=== PATIENT | female | born 1980 | race African-American/Black ===

== ENCOUNTER 2019-03-13 18:17 | Emergency (ER) | payer OTHER, SELFPAY ==
--- NOTE | 2019-03-13 20:30 | ER ---
Nurse's Notes [facility] Name: Astrid Zamora Age: 38 yrs Sex: Female : 1980 Arrival Date: 03/13/2019 Time: 18:19 Bed 30 Private MD: Diagnosis: Dental caries;Dental caries, unspecified Presentation: 03/13 18:29 Presenting complaint: Patient states: left lower tooth pain/swelling x 2 weeks. Has sv seen her PCP was given Amoxicillin and finished that round and f/u with her PCP again and sent her with PCN and today woke up with increased left lower jaw/lip swelling. Transition of care: patient was not received from another setting of care. Onset of symptoms was March 13, 2019. Care prior to arrival: None. 18:29 Method Of Arrival: Ambulatory sv 18:29 Acuity: CR 3 sv 19:27 Risk Assessment: Do you want to hurt yourself or someone else? Patient reports no ea desire to harm self or others. Initial Sepsis Screen: Does the patient meet any 2 criteria? No. Patient's initial sepsis screen is negative. Does the patient have a suspected source of infection?. Historical: - Allergies: 18:31 No Known Allergies; sv - PMHx: 18:31 Hypertension; sv - PSHx: 18:31 Tubal ligation; Cholecystectomy; sv - Immunization history:: Adult Immunizations up to date. - Social history:: Smoking status: Patient/guardian denies using tobacco. - Ebola Screening: : No symptoms or risks identified at this time. - Family history:: not pertinent. Screenin:26 Abuse screen: Denies threats or abuse. Nutritional screening: No deficits noted. ea Tuberculosis screening: No symptoms or risk factors identified. Fall Risk None identified. Assessment: 19:24 General: Appears uncomfortable, Behavior is crying. Pain: Complains of pain in left ea yazdanism, left zygomatic area, left cheek and left mandible. Neuro: Level of Consciousness is awake, alert, obeys commands, Oriented to person, place, time, situation. Cardiovascular: Patient's skin is warm and dry. Respiratory: Airway is patent Respiratory effort is even, unlabored, Respiratory pattern is regular, symmetrical. EENT: Reports pain in left yazdanism, left zygomatic area, left cheek and left mandible. EENT: swelling noted to left side of face, pt reports tooth pain. Derm: Skin is pink, warm \T\ dry. 20:51 Reassessment: Patient and/or family updated on plan of care and expected duration. Pain ea level reassessed. Patient is alert, oriented x 3, equal unlabored respirations, skin warm/dry/pink. Discharge instruction given to patient, verbalized the understanding of instruction. Pt left ED ambulatory no s/s of pain or discomfort noted. Vital Signs: 18:31 BP 132 / 73; Pulse 79; Resp 18; Temp 99.2(O); Pulse Ox 97% ; Weight 113.85 kg; Height 5 sv ft. 4 in. (162.56 cm); Pain 10/10; 20:45 BP 128 / 65; Pulse 68; Resp 18; Temp 98.9; Pulse Ox 99% on R/A; Pain 7/10; ea 18:31 Body Mass Index 43.08 (113.85 kg, 162.56 cm) sv ED Course: 18:19 Patient arrived in ED. as 18:31 Triage completed. sv 18:31 Arm band placed on. sv 19:23 Jadon Mayo MD is Attending Physician. catrina 19:24 Peri Rai, CHOLO is Primary Nurse. ea 19:27 Patient has correct armband on for positive identification. Bed in low position. Call ea light in reach. Side rails up X2. 20:50 No provider procedures requiring assistance completed. Patient did not have IV access ea during this emergency room visit. Administered Medications: 20:35 Drug: Motrin 800 mg Route: PO; ea 20:50 Follow up: Response: No adverse reaction ea 20:35 Drug: Clindamycin 300 mg Route: PO; ea 20:50 Follow up: Response: No adverse reaction ea 20:50 CANCELLED (Other Intervention Used): Clindamycin 600 mg IM once ea Outcome: 20:29 Discharge ordered by . catrina 20:50 Discharged to home ambulatory. ea 20:50 Condition: stable 20:50 Discharge instructions given to patient, Instructed on discharge instructions, follow up and referral plans. medication usage, Demonstrated understanding of instructions, follow-up care, medications, Prescriptions given X 2. 20:53 Patient left the ED. ea Signatures: Wilma Brown RN RN Jadon Mayo MD MD cha Martinez, Amelia as Antunez, Elena, RN RN ea Corrections: (The following items were deleted from the chart) 18:32 18:31 BP 132 / 73; Pulse 79bpm; Resp 18bpm; Pulse Ox 97%; 113.85 kg; Height 5 ft. 4 sv in.; BMI: 43.0; Pain 10/10; sv
--- NOTE | 2019-03-13 20:30 | EDPHYS ---
Physician Documentation [facility] Name: Astrid Zamora Age: 38 yrs Sex: Female : 1980 Arrival Date: 03/13/2019 Time: 18:19 Bed 30 Private MD: ED Physician Jadon Mayo HPI: 03/13 20:24 This 38 yrs old Black Female presents to ER via Ambulatory with complaints of catrina Toothache, Jaw Pain. 20:24 The patient presents with pain, redness, swelling. The problem is located in the lower catrina left second molar, lower left first molar, lower left second bicuspid and left jaw. Onset: The symptoms/episode began/occurred 3 day(s) ago. Duration: The symptoms are continuous, and are steadily getting worse. Modifying factors: The symptoms are alleviated by nothing, the symptoms are aggravated by chewing, cold fluids. Associated signs and symptoms: The patient has no apparent associated signs or symptoms. Severity of symptoms: At their worst the symptoms were moderate, in the emergency department the symptoms are unchanged. The patient has experienced similar episodes in the past, a few times. Historical: - Allergies: 18:31 No Known Allergies; sv - PMHx: 18:31 Hypertension; sv - PSHx: 18:31 Tubal ligation; Cholecystectomy; sv - Immunization history:: Adult Immunizations up to date. - Social history:: Smoking status: Patient/guardian denies using tobacco. - Ebola Screening: : No symptoms or risks identified at this time. - Family history:: not pertinent. ROS: 20:24 Constitutional: Negative for fever, chills, and weight loss, Eyes: Negative for injury, catrina pain, redness, and discharge, Neck: Negative for injury, pain, and swelling, Cardiovascular: Negative for chest pain, palpitations, and edema, Respiratory: Negative for shortness of breath, cough, wheezing, and pleuritic chest pain, Abdomen/GI: Negative for abdominal pain, nausea, vomiting, diarrhea, and constipation, Back: Negative for injury and pain, : Negative for injury, bleeding, discharge, and swelling, MS/Extremity: Negative for injury and deformity, Skin: Negative for injury, rash, and discoloration, Neuro: Negative for headache, weakness, numbness, tingling, and seizure, Psych: Negative for depression, anxiety, suicide ideation, homicidal ideation, and hallucinations, Allergy/Immunology: Negative for hives, rash, and allergies, Endocrine: Negative for neck swelling, polydipsia, polyuria, polyphagia, and marked weight changes, Hematologic/Lymphatic: Negative for swollen nodes, abnormal bleeding, and unusual bruising. 20:24 ENT: Positive for dental pain. Exam: 20:24 Constitutional: This is a well developed, well nourished patient who is awake, alert, catrina and in no acute distress. Head/Face: Normocephalic, atraumatic. Eyes: Pupils equal round and reactive to light, extra-ocular motions intact. Lids and lashes normal. Conjunctiva and sclera are non-icteric and not injected. Cornea within normal limits. Periorbital areas with no swelling, redness, or edema. ENT: Nares patent. No nasal discharge, no septal abnormalities noted. Tympanic membranes are normal and external auditory canals are clear. Oropharynx with no redness, swelling, or masses, exudates, or evidence of obstruction, uvula midline. Mucous membranes moist. Neck: Trachea midline, no thyromegaly or masses palpated, and no cervical lymphadenopathy. Supple, full range of motion without nuchal rigidity, or vertebral point tenderness. No Meningismus. Chest/axilla: Normal chest wall appearance and motion. Nontender with no deformity. No lesions are appreciated. Cardiovascular: Regular rate and rhythm with a normal S1 and S2. No gallops, murmurs, or rubs. Normal PMI, no JVD. No pulse deficits. Respiratory: Lungs have equal breath sounds bilaterally, clear to auscultation and percussion. No rales, rhonchi or wheezes noted. No increased work of breathing, no retractions or nasal flaring. Abdomen/GI: Soft, non-tender, with normal bowel sounds. No distension or tympany. No guarding or rebound. No evidence of tenderness throughout. Back: No spinal tenderness. No costovertebral tenderness. Full range of motion. Skin: Warm, dry with normal turgor. Normal color with no rashes, no lesions, and no evidence of cellulitis. MS/ Extremity: Pulses equal, no cyanosis. Neurovascular intact. Full, normal range of motion. Neuro: Awake and alert, GCS 15, oriented to person, place, time, and situation. Cranial nerves II-XII grossly intact. Motor strength 5/5 in all extremities. Sensory grossly intact. Cerebellar exam normal. Normal gait. Psych: Awake, alert, with orientation to person, place and time. Behavior, mood, and affect are within normal limits. Vital Signs: 18:31 BP 132 / 73; Pulse 79; Resp 18; Temp 99.2(O); Pulse Ox 97% ; Weight 113.85 kg; Height 5 sv ft. 4 in. (162.56 cm); Pain 10/10; 20:45 BP 128 / 65; Pulse 68; Resp 18; Temp 98.9; Pulse Ox 99% on R/A; Pain 7/10; ea 18:31 Body Mass Index 43.08 (113.85 kg, 162.56 cm) sv MDM: 19:23 Patient medically screened. [facility] 20:27 Data reviewed: vital signs, nurses notes. [facility] Administered Medications: 20:35 Drug: Motrin 800 mg Route: PO; ea 20:50 Follow up: Response: No adverse reaction ea 20:35 Drug: Clindamycin 300 mg Route: PO; ea 20:50 Follow up: Response: No adverse reaction ea 20:50 CANCELLED (Other Intervention Used): Clindamycin 600 mg IM once ea Disposition: 03/13/19 20:29 Discharged to Home. Impression: Dental caries, Dental caries, unspecified. - Condition is Stable. - Discharge Instructions: Dental Caries, Adult, Dental Pain, Dental Pain, [id number], Dental Caries, [id number]. - Prescriptions for Clindamycin HCl 300 mg Oral Capsule - take 1 capsule by ORAL route every 6 hours for 10 days; 28 capsule. Tylenol- Codeine #3 300-30 mg Oral Tablet - take 2 tablet by ORAL route every 6 hours As needed; 30 tablet. - Medication Reconciliation Form, Thank You Letter, Antibiotic Education, Prescription Opioid Use form. - Follow up: Private Physician; When: 2 - 3 days; Reason: Recheck today's complaints, Re-evaluation by your physician. - Problem is new. - Symptoms have improved. Signatures: Wilma Brown RN RN sv Anderson, Corey, MD MD cha Antunez, Elena, RN RN ea Corrections: (The following items were deleted from the chart) 20:50 20:24 Clindamycin 600 mg IM once ordered. [facility] belen 20:53 20:29 03/13/2019 20:29 Discharged to Home. Impression: Dental caries; Dental caries, ea unspecified. Condition is Stable. Forms are Medication Reconciliation Form, Thank You Letter, Antibiotic Education, Prescription Opioid Use. Follow up: Private Physician; When: 2 - 3 days; Reason: Recheck today's complaints, Re-evaluation by your physician. Problem is new. Symptoms have improved. catrina
[2019-03-13] MEDS ORDERED: CLINDAMYCIN HCL 150 MG CAP ONE (20:44)
[2019-03-13] MEDS ORDERED: IBUPROFEN 400 MG TAB ONE (20:45)
[2019-03-13 21:36] VITALS: BP 128/65; TEMP 98.9; O2SAT 99
== END 2019-03-13 20:53 | disposition home or self-care (01) ==
LOC: ER 18:17
DX: K02.9 Dental caries, unspecified (principal); I10 Essential (primary) hypertension
CPT/HCPCS: 99283

== ENCOUNTER 2019-11-15 11:40 | Emergency (ER) | payer SELFPAY ==
--- OUTSIDE RECORDS SUMMARY | 2019-11-15 11:42 | XMS REPORT ---
:1980 Author Organization [facility] Address [address] [place] [address] [address] [place] [address] Care Team Providers Name Role Phone Unavailable Unavailable Unavailable Problems This patient has no known problems. Allergies, Adverse Reactions, Alerts This patient has no known allergies or adverse reactions. Medications This patient has no known medications.
[2019-11-15] MEDS ORDERED: ASPIRIN 81 MG CHEWABLE TABLET ONE ×2 (12:07→12:08)
[2019-11-15 12:17] LABS: Absolute Lymphocytes (CBC) 2.7 K/uL (0.7-4.9); Basophils % 0.9 % (0-1.3); Hematocrit 31.3 % (36.0-45.0); Lymphocytes % 39.2 % (15.3-44.8); MPV 7.7 fL (7.6-11.3); RBC Red Blood Cell Count 4.62 M/uL (3.86-4.86)
[2019-11-15 12:20] LABS: Protime INR 1.11
[2019-11-15 12:39] LABS: ALT/SGPT 33 U/L (12-78); AST/SGOT 32 U/L (15-37); Albumin 3.9 g/dL (3.4-5.0); Alkaline Phosphatase 76 U/L (45-117); BUN Blood Urea Nitrogen 10 mg/dL (7-18); Bicarbonate 29 mmol/L (21-32); Bilirubin Direct 0.1 mg/dL (0-0.2); Bilirubin Total 0.4 mg/dL (0.2-1.0); Glucose Level 113 mg/dL (74-106); Magnesium 2.1 mg/dL (1.8-2.4); Potassium 3.2 mmol/L (3.5-5.1); Protein, Total 9.3 g/dL (6.4-8.2); Sodium Level 138 mmol/L (136-145); Troponin (Emerg Dept Use Only) < 0.02 ng/mL (0.0-0.045)
[2019-11-15 12:41] LABS: NT PRO-BNP < 5 pg/mL (<125)
[2019-11-15 13:04] LABS: Blood Morphology Comment NOTED (NOT SEEN); Hypochromasia 1+; Platelet Estimate INCR; Urine White Blood Cell Casts OK
[2019-11-15] MEDS ORDERED: KETOROLAC 30 MG/ML INJ ONE (13:11)
[2019-11-15] MEDS ORDERED: POTASSIUM CL SA 10 MEQ TAB PO ONE (13:11)
--- NOTE | 2019-11-15 13:16 | RAD REPORT ---
EXAM DESCRIPTION: RAD - Chest Single View - 11/15/2019 1:05 pm CLINICAL HISTORY: CHEST PAIN Chest pain. COMPARISON: No comparisons FINDINGS: Portable technique limits examination quality. The lungs are grossly clear. The heart is normal in size. No displaced fractures. IMPRESSION: No acute intrathoracic process suspected.
--- NOTE | 2019-11-15 13:49 | ER ---
Nurse's Notes [facility] Name: Astrid Zamora Age: 39 yrs Sex: Female : 1980 Arrival Date: 11/15/2019 Time: 11:42 Bed 4 Private MD: Diagnosis: Chest pain, unspecified Presentation: 11/15 11:53 Presenting complaint: Patient states: Chest tightness started couple days ago, worse ca1 today. Reports N/V/Dizziness. No previous hx of chest pain, Hx of HPN reported. Transition of care: patient was not received from another setting of care. Onset of symptoms was November 15, 2019. Risk Assessment: Do you want to hurt yourself or someone else? Patient reports no desire to harm self or others. Initial Sepsis Screen: Does the patient meet any 2 criteria? No. Patient's initial sepsis screen is negative. Does the patient have a suspected source of infection? No. Patient's initial sepsis screen is negative. Care prior to arrival: None. 11:53 Method Of Arrival: Wheelchair ca1 11:53 Acuity: CR 3 ca1 DICE PERSON: 11:57 LMP 10/28/2019 ca1 Historical: - Allergies: 11:55 No Known Allergies; ca1 - Home Meds: 11:55 hydrochlorothiazide 25 mg Oral tab 1 tab once daily [Active]; ca1 - PMHx: 11:55 Hypertension; ca1 - PSHx: 11:55 Cholecystectomy; Tubal ligation; ca1 - Immunization history:: Adult Immunizations up to date, Pneumococcal vaccine is not up to date, Flu vaccine is not up to date. - Social history:: Smoking status: Patient/guardian denies using tobacco. - Ebola Screening: : Patient negative for fever greater than or equal to 101.5 degrees Fahrenheit, and additional compatible Ebola Virus Disease symptoms Patient denies exposure to infectious person Patient denies travel to an Ebola-affected area in the 21 days before illness onset No symptoms or risks identified at this time. Screenin:24 Abuse screen: Denies threats or abuse. Nutritional screening: No deficits noted. tw2 Tuberculosis screening: No symptoms or risk factors identified. Fall Risk None identified. Assessment: 11:53 Pain: Pain does not radiate. tw2 12:00 General: Appears in no apparent distress. comfortable, well groomed, Behavior is calm, ph cooperative, appropriate for age, Denies fever, feeling ill. Pain: Complains of pain in anterior aspect of right upper chest Pain does not radiate. Pain currently is 9 out of 10 on a pain scale. Quality of pain is described as throbbing. Neuro: Level of Consciousness is awake, alert, obeys commands, Oriented to person, place, time, situation, Reports dizziness. Cardiovascular: Reports chest pain, nausea, vomiting, Denies palpitations, shortness of breath. Cardiovascular: Chest pain is located in right anterior chest wall. Respiratory: Airway is patent Respiratory effort is even, unlabored. GI: Reports nausea, vomiting, Patient currently denies abdominal pain. Derm: Skin is intact, is healthy with good turgor, Skin is pink, warm \T\ dry. Musculoskeletal: Circulation, motion, and sensation intact. Range of motion: intact in all extremities. 12:25 Pain: Pain began 2-3 days ago. tw2 12:55 Reassessment: Patient appears in no apparent distress at this time. Patient and/or ph family updated on plan of care and expected duration. Pain level reassessed. Patient is alert, oriented x 3, equal unlabored respirations, skin warm/dry/pink. PT c/o pain 10/10 and requesting medication, ERP notified, see MAR. 13:30 Reassessment: Patient appears in no apparent distress at this time. Patient and/or ph family updated on plan of care and expected duration. Pain level reassessed. Patient is alert, oriented x 3, equal unlabored respirations, skin warm/dry/pink. Patient states symptoms have improved. Vital Signs: 11:55 BP 153 / 103; Pulse 110; Resp 16 S; Pulse Ox 100% on R/A; Weight 111.13 kg (R); Height ca1 5 ft. 4 in. (162.56 cm) (R); Pain 9/10; 12:24 BP 127 / 91; Pulse 77; Resp 18; Pulse Ox 100% on R/A; tw2 13:22 BP 101 / 76; Pulse 74; Resp 18; Pulse Ox 99% on R/A; ph 14:00 BP 118 / 90; Pulse 75; Resp 17; Temp 97.4; Pulse Ox 100% on R/A; ph 11:55 Body Mass Index 42.05 (111.13 kg, 162.56 cm) ca1 ED Course: 11:42 Patient arrived in ED. mr 11:46 Amaury Banda PA is PHCP. jr8 11:46 Jadon Mayo MD is Attending Physician. jr8 11:46 Bed in low position. Call light in reach. cuff slitter on. Pulse ox on. NIBP on. tw2 11:54 Triage completed. ca1 11:55 Arm band placed on right wrist. ca1 12:05 Denisse Perez, CHOLO is Primary Nurse. ph 12:16 Initial lab(s) drawn, by me, sent to lab. EKG done, by ED staff, reviewed by Amaury FREED. Inserted saline lock: 22 gauge in right antecubital area, using aseptic technique. Blood collected. 12:24 Patient maintains SpO2 saturation greater than 95% on room air. tw2 13:02 XRAY Chest (1 view) In Process Unspecified. EDAK 13:47 Silvano Rosales MD is Referral Physician. jr8 14:00 No provider procedures requiring assistance completed. IV discontinued, intact, tw2 bleeding controlled, No redness/swelling at site. Pressure dressing applied. Administered Medications: 12:15 Drug: Aspirin Chewable Tablet 324 mg Route: PO; ph 12:30 Follow up: Response: No adverse reaction ph 13:14 Follow up: Response: No adverse reaction tw2 13:15 Drug: Potassium Chloride 40 mEq Route: PO; ph 13:30 Follow up: Response: No adverse reaction ph 13:15 Drug: TORadol - Ketorolac 15 mg Route: IVP; Site: right antecubital; ph 13:45 Follow up: Response: No adverse reaction; Pain is decreased ph Outcome: 13:47 Discharge ordered by . jr8 14:00 Discharged to home ambulatory, with family. tw2 14:00 Condition: stable 14:00 Discharge instructions given to patient, family, Instructed on discharge instructions, follow up and referral plans. Demonstrated understanding of instructions, follow-up care. 14:01 Patient left the ED. tw2 Signatures: Dispatcher [employer] EDAK Kath Ricci mr NadyasanjayAmaury PA PA jr8 Denisse Perez, CHOLO RN ph Jacqueline Hanley RN RN tw2 Mehran Garcia Cheryl, RN RN ca1 Corrections: (The following items were deleted from the chart) 15:52 14:00 BP 118 / 90; Pulse 75bpm; Resp 17bpm; Pulse Ox 100% RA; tw2 ph
--- NOTE | 2019-11-15 13:50 | EDPHYS ---
Physician Documentation [facility] Name: Astrid Zamora Age: 39 yrs Sex: Female : 1980 Arrival Date: 11/15/2019 Time: 11:42 Bed 4 Private MD: ED Physician Jadon Mayo HPI: 11/15 13:09 This 39 yrs old Black Female presents to ER via Wheelchair with complaints of Chest jr8 Pain, Dizziness. 13:09 The patient or guardian reports chest pain that is located primarily in the substernal jr8 area. The pain does not radiate. Associated signs and symptoms: The patient has no apparent associated signs or symptoms. The chest pain is described as sharp. Duration: The patient or guardian reports multiple episodes, that are intermittent. Modifying factors: The symptoms are alleviated by nothing. the symptoms are aggravated by nothing. Severity of pain: At its worst the pain was moderate in the emergency department the pain is unchanged. The patient has not experienced similar symptoms in the past. The patient has not recently seen a physician. Stated that about 2 weeks ago had syncopal episode at work as well . 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 - Social history:: Smoking status: Patient/guardian denies using tobacco. - Ebola Screening: : Patient negative for fever greater than or equal to 101.5 degrees Fahrenheit, and additional compatible Ebola Virus Disease symptoms Patient denies exposure to infectious person Patient denies travel to an Ebola-affected area in the 21 days before illness onset No symptoms or risks identified at this time. ROS: 13:09 Eyes: Negative for injury, pain, redness, and discharge, ENT: Negative for injury, jr8 pain, and discharge, Neck: Negative for injury, pain, and swelling, Respiratory: Negative for shortness of breath, cough, wheezing, and pleuritic chest pain, Abdomen/GI: Negative for abdominal pain, nausea, vomiting, diarrhea, and constipation, Back: Negative for injury and pain, MS/Extremity: Negative for injury and deformity, Skin: Negative for injury, rash, and discoloration. 13:09 Cardiovascular: Positive for chest pain, Negative for edema, orthopnea, palpitations, paroxysmal nocturnal dyspnea. 13:09 Neuro: Positive for dizziness. Exam: 13:09 Eyes: Pupils equal round and reactive to light, extra-ocular motions intact. Lids and jr8 lashes normal. Conjunctiva and sclera are non-icteric and not injected. Cornea within normal limits. Periorbital areas with no swelling, redness, or edema. ENT: Nares patent. No nasal discharge, no septal abnormalities noted. Tympanic membranes are normal and external auditory canals are clear. Oropharynx with no redness, swelling, or masses, exudates, or evidence of obstruction, uvula midline. Mucous membranes moist. Neck: Trachea midline, no thyromegaly or masses palpated, and no cervical lymphadenopathy. Supple, full range of motion without nuchal rigidity, or vertebral point tenderness. No Meningismus. Chest/axilla: Normal chest wall appearance and motion. Nontender with no deformity. No lesions are appreciated. Cardiovascular: Regular rate and rhythm with a normal S1 and S2. No gallops, murmurs, or rubs. Normal PMI, no JVD. No pulse deficits. Respiratory: Lungs have equal breath sounds bilaterally, clear to auscultation and percussion. No rales, rhonchi or wheezes noted. No increased work of breathing, no retractions or nasal flaring. Abdomen/GI: Soft, non-tender, with normal bowel sounds. No distension or tympany. No guarding or rebound. No evidence of tenderness throughout. Back: No spinal tenderness. No costovertebral tenderness. Full range of motion. Skin: Warm, dry with normal turgor. Normal color with no rashes, no lesions, and no evidence of cellulitis. MS/ Extremity: Pulses equal, no cyanosis. Neurovascular intact. Full, normal range of motion. Neuro: Awake and alert, GCS 15, oriented to person, place, time, and situation. Cranial nerves II-XII grossly intact. Motor strength 5/5 in all extremities. Sensory grossly intact. Cerebellar exam normal. Normal gait. Vital Signs: 11:55 BP 153 / 103; Pulse 110; Resp 16 S; Pulse Ox 100% on R/A; Weight 111.13 kg (R); Height ca1 5 ft. 4 in. (162.56 cm) (R); Pain 9/10; 12:24 BP 127 / 91; Pulse 77; Resp 18; Pulse Ox 100% on R/A; tw2 13:22 BP 101 / 76; Pulse 74; Resp 18; Pulse Ox 99% on R/A; ph 14:00 BP 118 / 90; Pulse 75; Resp 17; Temp 97.4; Pulse Ox 100% on R/A; ph 11:55 Body Mass Index 42.05 (111.13 kg, 162.56 cm) ca1 MDM: 11:47 Patient medically screened. jr8 13:45 Differential diagnosis: abnormal EKG, acute myocardial infarction, acute pericarditis, jr8 anxiety, chest wall pain, cholecystitis, Cholelithiasis costochondritis, esophagitis, gastritis, gastroesophageal reflux disease (GERD), pleurisy, pneumonia, pulmonary embolus, stable angina, thoracic aortic disection, unstable angina. Data reviewed: vital signs, nurses notes, lab test result(s), EKG, radiologic studies, plain films. Data interpreted: Pulse oximetry: on room air is 99 %. Interpretation: normal. 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 ED course: Patient feeling better. Symptoms have been going on for past couple of days. No troponin elevation. Negative CXR and ECG for acute findings. Rest of labs stable. Recommended f/u with cardiology. Close return precautions given. Patient good with this plan . 11/15 11:55 Order name: Basic Metabolic Panel; Complete Time: 12:43 11/15 11:55 Order name: CBC with Diff; Complete Time: 13:05 11/15 11:55 Order name: LFT's; Complete Time: 12:43 11/15 11:55 Order name: Magnesium; Complete Time: 12:43 11/15 11:55 Order name: NT PRO-BNP; Complete Time: 12:43 11/15 11:55 Order name: PT-INR; Complete Time: 12:43 11/15 11:55 Order name: Troponin (emerg Dept Use Only); Complete Time: 12:43 11/15 11:55 Order name: XRAY Chest (1 view); Complete Time: 13:19 8 11/15 11:55 Order name: EKG; Complete Time: 11:56 jr11/15 11:55 Order name: Cardiac monitoring; Complete Time: 12:00 8 11/15 13:04 Order name: CBC Smear Scan; Complete Time: 13:05 EDMS 11/15 11:55 Order name: EKG - Nurse/Tech; Complete Time: 12:00 11/15 11:55 Order name: IV Saline Lock; Complete Time: 12:17 11/15 11:55 Order name: Labs collected and sent; Complete Time: 12:17 11/15 11:55 Order name: O2 Per Protocol; Complete Time: 12:11/15 11:55 Order name: O2 Sat Monitoring; Complete Time: 12: Administered Medications: 12:15 Drug: Aspirin Chewable Tablet 324 mg Route: PO; ph 12:30 Follow up: Response: No adverse reaction ph 13:14 Follow up: Response: No adverse reaction tw2 13:15 Drug: Potassium Chloride 40 mEq Route: PO; ph 13:30 Follow up: Response: No adverse reaction ph 13:15 Drug: TORadol - Ketorolac 15 mg Route: IVP; Site: right antecubital; ph 13:45 Follow up: Response: No adverse reaction; Pain is decreased ph Disposition: 11/16 07:26 Co-signature as Attending Physician, Jadon Mayo MD I agree with the assessment and catrina plan of care. Disposition: 11/15/19 13:47 Discharged to Home. Impression: Chest pain, unspecified. - Condition is Stable. - Discharge Instructions: Nonspecific Chest Pain, Chest Wall Pain, Chest Pain Observation. - Medication Reconciliation Form, Thank You Letter, Antibiotic Education, Prescription Opioid Use, Work release form form. - Follow up: Silvano Rosales MD; When: Tomorrow; Reason: Recheck today's complaints, Continuance of care, Re-evaluation by your physician. - Problem is new. - Symptoms have improved. Signatures: Dispatcher [employer] EDJadon Cervantes MD MD cha Roszak, Josh, PA PA jr8 Denisse Perez, RN RN ph Jacqueline Hanley RN RN tw2 Reba Bueno RN RN ca1 Corrections: (The following items were deleted from the chart) 11/15 14:01 13:47 11/15/2019 13:47 Discharged to Home. Impression: Chest pain, unspecified. tw2 Condition is Stable. Forms are Work release form, Medication Reconciliation Form, Thank You Letter, Antibiotic Education, Prescription Opioid Use. Follow up: Sivlano Rosales; When: Tomorrow; Reason: Recheck today's complaints, Continuance of care, Re-evaluation by your physician. Problem is new. Symptoms have improved. jr8
[2019-11-15 14:13] VITALS: BP 118/90; O2SAT 100
--- NOTE | 2019-11-16 05:32 | EKG ---
Test Date: 2019-11-15 Test Time: 11:59:59 Modeling Agency Manager: LAXMI MEASUREMENT RESULTS: Intervals: Rate: 89 DE: 150 QRSD: 90 QT: 370 QTc: 450 [place]: P: 47 DE: 150 QRS: 19 T: 19 INTERPRETIVE STATEMENTS: Normal sinus rhythm Nonspecific T wave abnormality Abnormal ECG Compared to ECG 09/01/2011 23:26:58 T-wave abnormality now present Electronically Signed On 11-16-19 05:30:38 TRANSCRIPTION MANAGER by Chemo Gilman
== END 2019-11-15 14:01 | disposition home or self-care (01) ==
LOC: ER 11:40
DX: R07.9 Chest pain, unspecified (principal); R42 Dizziness and giddiness; I10 Essential (primary) hypertension
CPT/HCPCS: 36415; 71045; 80048; 80076; 83735; 83880; 84484; 85025; 85610; 93005; 96374; 99285

== ENCOUNTER 2020-02-08 09:05 | Emergency (ER) | payer SELFPAY ==
--- OUTSIDE RECORDS SUMMARY | 2020-02-08 09:32 | XMS REPORT ---
:1980 [facility] [address] [place] [address] [address] [place] [address] Care Team Providers Name Role Phone Unavailable Unavailable Unavailable Problems This patient has no known problems. Allergies, Adverse Reactions, Alerts This patient has no known allergies or adverse reactions. Medications This patient has no known medications.
[2020-02-08 09:35] LABS: Absolute Lymphocytes (CBC) 3.9 K/uL (0.7-4.9); Hematocrit 30.5 % (36.0-45.0); MPV 7.6 fL (7.6-11.3); RBC Red Blood Cell Count 4.42 M/uL (3.86-4.86)
[2020-02-08 09:38] LABS: Protime INR 1.01
--- NOTE | 2020-02-08 09:55 | RAD REPORT ---
EXAM DESCRIPTION: RAD - Chest Single View - 02/08/2020 9:43 am CLINICAL HISTORY: Syncope, shortness of breath COMPARISON: November 2019 TECHNIQUE: AP portable chest image was obtained 02/08/2020 9:43 am . FINDINGS: Lungs are clear. Heart and vasculature are normal. No measurable pleural effusion and no p neumothorax. No acute bony abnormality seen. No acute aortic findings suspected. IMPRESSION: No acute cardiopulmonary process. No significant interval change.
--- NOTE | 2020-02-08 09:56 | RAD REPORT ---
EXAM DESCRIPTION: CT - Head Brain Wo Cont - 02/08/2020 9:51 am CLINICAL HISTORY: SYNCOPE, dizziness, loss of consciousness COMPARISON: No comparisons TECHNIQUE: Axial 5 mm thick images of the head were obtained without IV contrast. All CT scans are performed using dose optimization technique as appropriate and may include automated exposure control or mA/KV adjustment according to patient size. FINDINGS: No intracranial hemorrhage, mass, edema or shift of mid-line structures. No acute infarcti on changes seen. No abnormal extra-axial fluid collections. Ventricles are normal. Mastoid air cells and visualized portions of the paranasal sinuses are clear. No acute bony findings. IMPRESSION: Negative non-contrast CT head examination.
[2020-02-08 10:00] LABS: ALT/SGPT 18 U/L (12-78); AST/SGOT 22 U/L (15-37); Albumin 3.4 g/dL (3.4-5.0); Alkaline Phosphatase 64 U/L (45-117); BUN Blood Urea Nitrogen 15 mg/dL (7-18); Bicarbonate 26 mmol/L (21-32); Bilirubin Direct < 0.1 mg/dL (0-0.2); Bilirubin Total 0.2 mg/dL (0.2-1.0); Glucose Level 135 mg/dL (74-106); NT PRO-BNP 13 pg/mL (<125); Protein, Total 8.2 g/dL (6.4-8.2); Sodium Level 138 mmol/L (136-145); Troponin (Emerg Dept Use Only) < 0.02 ng/mL (0.0-0.045)
[2020-02-08 10:01] LABS: Potassium 2.9 mmol/L (3.5-5.1)
[2020-02-08 10:10] LABS: Anisocytosis 2+; Blood Morphology Comment NOTED (NOT SEEN); Hypochromasia 2+; Platelet Estimate ADEQ; Urine White Blood Cell Casts OK
[2020-02-08 10:11] LABS: Elliptocytes 1+
[2020-02-08] MEDS ORDERED: POTASSIUM 25 MEQ EFFERV TAB ONE (10:22)
[2020-02-08 10:28] LABS: Urine Blood NEGATIVE (NEG); Urine Glucose NEGATIVE (NEG); Urine Protein NEGATIVE (NEG); Urine Specific Gravity >1.030 (1.005-1.030)
--- NOTE | 2020-02-08 14:02 | EDPHYS ---
Physician Documentation [facility] Name: Astrid Zamora Age: 39 yrs Sex: Female : 1980 Arrival Date: 02/08/2020 Time: 09:10 Bed 17 Private MD: ELADIO Physician Jadon Mayo HPI: 02/07 09:26 This 39 yrs old Black Female presents to ER via EMS with complaints of Syncope. pm1 09:26 The patient has experienced syncope. Onset: The symptoms/episode began/occurred just pm1 prior to arrival. Duration: This was a single episode. Context: the episode(s) was witnessed, home health patient. Associated injury: The patient did not suffer any apparent associated injury. Associated signs and symptoms: Pertinent negatives: abdominal pain, chest pain, diarrhea, headache, nausea, numbness, shortness of breath, tingling, vomiting, weakness. Current symptoms: Currently, the patient is not experiencing any symptoms. The patient has experienced a previous episode, approximately 3 months ago. The patient has been recently seen by a physician: the patient's primary care provider, recently prescribed hydrochlorothiazide for HTN. 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 - Social history:: Smoking status: Patient denies any tobacco usage or history of. ROS: 09:32 Constitutional: Negative for fever, chills, and weight loss, Eyes: Negative for injury, pm1 pain, redness, and discharge, ENT: Negative for injury, pain, and discharge, Neck: Negative for injury, pain, and swelling, Cardiovascular: Negative for chest pain, palpitations, and edema, Respiratory: Negative for shortness of breath, cough, wheezing, and pleuritic chest pain, Abdomen/GI: Negative for abdominal pain, nausea, vomiting, diarrhea, and constipation, Back: Negative for injury and pain, MS/Extremity: Negative for injury and deformity, Skin: Negative for injury, rash, and discoloration. 09:32 Neuro: Positive for dizziness, syncope, Negative for headache, numbness, tingling, weakness. Exam: 09:32 Abdomen/GI: pm1 09:32 Constitutional: This is a well developed, well nourished patient who is awake, alert, and in no acute distress. Head/Face: Normocephalic, atraumatic. Chest/axilla: Normal chest wall appearance and motion. Nontender with no deformity. No lesions are appreciated. Cardiovascular: Regular rate and rhythm with a normal S1 and S2. No gallops, murmurs, or rubs. Normal PMI, no JVD. No pulse deficits. Respiratory: Lungs have equal breath sounds bilaterally, clear to auscultation and percussion. No rales, rhonchi or wheezes noted. No increased work of breathing, no retractions or nasal flaring. Abdomen/GI: Soft, non-tender, with normal bowel sounds. No distension or tympany. No guarding or rebound. No evidence of tenderness throughout. Back: No spinal tenderness. No costovertebral tenderness. Full range of motion. Skin: Warm, dry with normal turgor. Normal color with no rashes, no lesions, and no evidence of cellulitis. MS/ Extremity: Pulses equal, no cyanosis. Neurovascular intact. Full, normal range of motion. 09:32 Neuro: Exam negative for acute changes, Orientation: is normal, Mentation: is normal, Motor: is normal, moves all fours. Vital Signs: 09:10 BP 118 / 80; Pulse 77; Resp 18; Temp 98.1(O); Pulse Ox 100% on R/A; Weight 111.13 kg; em Height 5 ft. 4 in. (162.56 cm); Pain 0/10; 09:46 BP 122 / 71 LA Sitting (auto/lg); Pulse 81; Resp 18; Pulse Ox 100% ; ms 09:46 BP 116 / 77 LA Standing (auto/lg); Pulse 74; Resp 18; Pulse Ox 99% ; ms 09:46 BP 113 / 74 LA Supine (auto/lg); Pulse 72; Resp 18; Pulse Ox 100% ; ms 10:36 BP 112 / 71; Pulse 65; Resp 18; Pulse Ox 99% on R/A; em 11:45 BP 139 / 94; Pulse 72; Resp 18; Pulse Ox 99% on R/A; em 13:00 BP 116 / 74; Pulse 69; Resp 18; Pulse Ox 99% on R/A; em 09:10 Body Mass Index 42.05 (111.13 kg, 162.56 cm) em MDM: 09:11 Patient medically screened. pm1 11:25 Data reviewed: vital signs. Data interpreted: Pulse oximetry: on room air is 99 %. pm1 Interpretation: normal. 13:58 Counseling: I had a detailed discussion with the patient and/or guardian regarding: the pm1 historical points, exam findings, and any diagnostic results supporting the discharge/admit diagnosis, lab results, radiology results, the need for outpatient follow up, to return to the emergency department if symptoms worsen or persist or if there are any questions or concerns that arise at home. 02/07 09:20 Order name: Basic Metabolic Panel; Complete Time: 10:04 pm1 02/07 09:20 Order name: CBC with Diff; Complete Time: 10:18 pm1 02/07 09:20 Order name: LFT's; Complete Time: 10:04 pm1 02/07 09:20 Order name: Magnesium; Complete Time: 10:04 pm1 02/07 09:20 Order name: NT PRO-BNP; Complete Time: 10:04 pm1 02/07 09:20 Order name: PT-INR; Complete Time: 09:44 pm1 02/07 09:20 Order name: Troponin (emerg Dept Use Only); Complete Time: 10:04 pm1 02/07 09:20 Order name: XRAY Chest (1 view); Complete Time: 10:25 pm1 02/07 09:20 Order name: CT Head Brain wo Cont; Complete Time: 10:25 pm1 02/07 10:12 Order name: CBC Smear Scan; Complete Time: 10:18 EDMS 02/07 10:21 Order name: Urine Dipstick--Ancillary (enter results); Complete Time: 10:35 bd 02/07 10:21 Order name: Urine --Ancillary (enter results); Complete Time: 10:35 bd 02/07 11:22 Order name: Troponin (emerg Dept Use Only): Draw at 1330; Complete Time: 13:58 pm1 02/07 09:20 Order name: EKG; Complete Time: 09:22 pm1 02/07 09:20 Order name: Cardiac monitoring; Complete Time: 09:29 pm1 03/30 09:20 Order name: EKG - Nurse/Tech; Complete Time: 09:29 pm02/07 09:20 Order name: IV Saline Lock; Complete Time: :31 pm02/07 09:20 Order name: Labs collected and sent; Complete Time: 09:31 pm02/07 09:20 Order name: O2 Per Protocol; Complete Time: :31 pm02/07 09:20 Order name: O2 Sat Monitoring; Complete Time: : pm02/07 09:20 Order name: Urine Dipstick-Ancillary (obtain specimen); Complete Time: 10:24 pm02/07 09:20 Order name: Urine Test (obtain specimen); Complete Time: 10:25 pm02/07 09:20 Order name: Orthostatic Blood Pressure; Complete Time: 09:48 pm02/07 11:41 Order name: Diet Regular; Complete Time: 11:42 em Administered Medications: 10:24 Drug: Potassium Effervescent Tablet 50 mEq Route: PO; em 11:40 Follow up: Response: No adverse reaction em Disposition: 17:07 Co-signature as Attending Physician, Jadon Mayo MD I agree with the assessment and catrina plan of care. Disposition: 02/08/20 14:01 Discharged to Home. Impression: Syncope and collapse. - Condition is Stable. - Discharge Instructions: Syncope. - Medication Reconciliation Form, Thank You Letter, Antibiotic Education, Prescription Opioid Use form. - Work release form (02/08/20 14:55). em - Follow up: Emergency Department; When: As needed; Reason: Worsening of condition. Follow up: Private Physician; When: 2 - 3 days; Reason: Recheck today's complaints, Continuance of care, Re-evaluation by your physician. - Problem is new. - Symptoms have improved. Signatures: Dispatcher [employer] Jadon Farley MD MD cha Munoz, Edgar RN RN Adis Ames NP PLANT ENGINEERING MANAGER pm1 Corrections: (The following items were deleted from the chart) 14:37 14:01 02/08/2020 14:01 Discharged to Home. Impression: Syncope and collapse. Condition em is Stable. Forms are Medication Reconciliation Form, Thank You Letter, Antibiotic Education, Prescription Opioid Use. Follow up: Emergency Department; When: As needed; Reason: Worsening of condition. Follow up: Private Physician; When: 2 - 3 days; Reason: Recheck today's complaints, Continuance of care, Re-evaluation by your physician. Problem is new. Symptoms have improved. pm1
--- NOTE | 2020-02-08 14:02 | ER ---
Nurse's Notes [facility] Name: Astrid Zamora Age: 39 yrs Sex: Female : 1980 Arrival Date: 02/08/2020 Time: 09:10 Bed 17 Private MD: Diagnosis: Syncope and collapse Presentation: 02/07 09:10 Chief complaint: EMS states: called out for syncope, felt dizzy and sat down then went em unconscious for several minutes, witnessed by her home health patient. Coronavirus screen: Patient denies fever greater than 100.4F, cough, shortness of breath, or difficulty breathing. Proceed with normal triage process. Ebola Screen: Patient negative for fever greater than or equal to 101.5 degrees Fahrenheit, and additional compatible Ebola Virus Disease symptoms Patient denies exposure to infectious person. Patient denies travel to an Ebola-affected area in the 21 days before illness onset. No symptoms or risks identified at this time. Initial Sepsis Screen: Does the patient meet any 2 criteria? No. Patient's initial sepsis screen is negative. Does the patient have a suspected source of infection? No. Patient's initial sepsis screen is negative. Risk Assessment: Do you want to hurt yourself or someone else? Patient reports no desire to harm self or others. 09:10 Method Of Arrival: EMS: [facility] em 09:10 Acuity: CR 2 em 09:23 Care prior to arrival: Medication(s) given: zofran 4 mg. 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 - Social history:: Smoking status: Patient denies any tobacco usage or history of. Screenin:18 Abuse screen: Denies threats or abuse. Nutritional screening: No deficits noted. em Tuberculosis screening: No symptoms or risk factors identified. Fall Risk None identified. Assessment: 09:16 General: Appears in no apparent distress. comfortable, well groomed, well developed, em well nourished, Behavior is calm, cooperative, Denies fever. Pain: Denies pain. Neuro: Level of Consciousness is awake, alert, obeys commands, Oriented to person, place, time, situation, Appropriate for age Reports dizziness, a syncopal episode. Cardiovascular: Denies chest pain, Capillary refill < 3 seconds Patient's skin is warm and dry. Rhythm is sinus rhythm. Respiratory: Airway is patent Respiratory effort is even, unlabored, Respiratory pattern is regular, symmetrical. GI: Patient currently denies nausea, vomiting. Derm: Skin is intact, is healthy with good turgor, Skin is pink, warm \T\ dry. Musculoskeletal: Capillary refill < 3 seconds, Range of motion: intact in all extremities. 09:52 Reassessment: wheeled to CT via wheelchair. em 10:50 Reassessment: Patient appears in no apparent distress at this time. Patient and/or em family updated on plan of care and expected duration. Pain level reassessed. Patient is alert, oriented x 3, equal unlabored respirations, skin warm/dry/pink. 11:22 Reassessment: Patient appears in no apparent distress at this time. will repeat trop. em at 1330. 12:39 Reassessment: Patient appears in no apparent distress at this time. lunch tray given. em 13:30 Reassessment: repeat trop. sent to lab. em 14:33 Reassessment: Patient appears in no apparent distress at this time. Patient and/or em family updated on plan of care and expected duration. Pain level reassessed. Patient is alert, oriented x 3, equal unlabored respirations, skin warm/dry/pink. Vital Signs: 09:10 BP 118 / 80; Pulse 77; Resp 18; Temp 98.1(O); Pulse Ox 100% on R/A; Weight 111.13 kg; em Height 5 ft. 4 in. (162.56 cm); Pain 0/10; 09:46 BP 122 / 71 LA Sitting (auto/lg); Pulse 81; Resp 18; Pulse Ox 100% ; ms 09:46 BP 116 / 77 LA Standing (auto/lg); Pulse 74; Resp 18; Pulse Ox 99% ; ms 09:46 BP 113 / 74 LA Supine (auto/lg); Pulse 72; Resp 18; Pulse Ox 100% ; ms 10:36 BP 112 / 71; Pulse 65; Resp 18; Pulse Ox 99% on R/A; em 11:45 BP 139 / 94; Pulse 72; Resp 18; Pulse Ox 99% on R/A; em 13:00 BP 116 / 74; Pulse 69; Resp 18; Pulse Ox 99% on R/A; em 09:10 Body Mass Index 42.05 (111.13 kg, 162.56 cm) em ED Course: 09:10 Patient arrived in ED. em 09:11 Adis Chilel NP is PHCP. pm1 09:11 Jadon Mayo MD is Attending Physician. pm1 09:15 Triage completed. em 09:16 Arm band placed on. em 09:18 Patient has correct armband on for positive identification. Placed in gown. Bed in low em position. Call light in reach. Side rails up X2. quality assurance monitor final on. Pulse ox on. NIBP on. 09:18 Maintain EMS IV. Dressing intact. Good blood return noted. Site clean \T\ dry. Gauge \T\ em site: 20 RAC. 09:19 Mitchel Monroy, RN is Primary Nurse. em 09:24 EKG done, by graphics edit technician. reviewed by Adis Chilel NP. at1 09:50 XRAY Chest (1 view) In Process Unspecified. EDMS 09:52 CT Head Brain wo Cont In Process Unspecified. EDMS 14:15 No provider procedures requiring assistance completed. IV discontinued, intact, em bleeding controlled, No redness/swelling at site. Pressure dressing applied. Administered Medications: 10:24 Drug: Potassium Effervescent Tablet 50 mEq Route: PO; em 11:40 Follow up: Response: No adverse reaction em Outcome: 14:01 Discharge ordered by . pm1 14:33 Discharged to home ambulatory. em 14:33 Condition: good 14:33 Discharge instructions given to patient, Instructed on discharge instructions, follow up and referral plans. Demonstrated understanding of instructions, follow-up care. 14:37 Patient left the ED. em Signatures: Dispatcher [employer] Mitchel Mars, CHOLO RN Ashly Neri ms, Amanda, mingler operator EKG Tat1 Adis Chilel NP HEAD MACHINE FEEDER pm1
[2020-02-08 15:26] VITALS: BP 134/89; TEMP 98; O2SAT 97
--- NOTE | 2020-02-09 05:25 | EKG ---
Test Date: 2020-02-08 Test Time: 09:20:09 Shop Girl: THONY MEASUREMENT RESULTS: Intervals: Rate: 72 CT: 168 QRSD: 96 QT: 394 QTc: 431 [place]: P: 55 CT: 168 QRS: 16 T: 18 INTERPRETIVE STATEMENTS: Normal sinus rhythm Incomplete right bundle branch block Borderline ECG Compared to ECG 11/15/2019 11:59:59 Incomplete right bundle-branch block now present T-wave abnormality no longer present Electronically Signed On 02-09-20 05:24:07 CDT by Silvano Rosales
== END 2020-02-08 14:37 | disposition home or self-care (01) ==
LOC: ER 09:05
DX: R55 Syncope and collapse (principal); I10 Essential (primary) hypertension
CPT/HCPCS: 36415; 70450; 71045; 80048; 80076; 81003; 81025; 83735; 83880; 84484; 85025; 85610; 93005; 99284

== ENCOUNTER 2021-02-02 06:01 | Day surgery (SDC) | payer OTHER ==
[2021-01-30 08:49] LABS: Urine Appearance CLEAR; Urine Bilirubin NEGATIVE (NEG); Urine Blood NEGATIVE (NEG); Urine Color YELLOW; Urine Glucose NEGATIVE (NEG); Urine Microscopic Reflex NO UMIC; Urine Protein NEGATIVE (NEG); Urine Specific Gravity 1.025 (1.005-1.030); Urine Urobilinogen 0.2 mg/dL (0.2-1.0)
[2021-01-30 08:57] LABS: Hematocrit 34.2 % (36.0-45.0); MPV 7.8 fL (7.6-11.3); RBC Red Blood Cell Count 4.51 M/uL (3.86-4.86)
[2021-02-02 06:31] LABS: Specific Gravity 1.015 (1.005-1.030)
[2021-02-02] MEDS ORDERED: SCOPOLAMINE HYDROBROMIDE PATCH TD ONE (06:50)
[2021-02-02] MEDS ORDERED: Ringers Lactate 1,000 ML IV ONE ×3 (06:50→10:53)
[2021-02-02] MEDS ORDERED: CEFAZOLIN/SWI 2gm 2 GM/20 ML SYR ONE (06:51)
[2021-02-02] MEDS ORDERED: CEFAZOLIN/SWI 1gm 1 GM/10 ML SYR ONE (06:51)
[2021-02-02] MEDS ORDERED: BUPIVACAINE 0.25% PF 30 ML VIAL ONE (07:19)
[2021-02-02] MEDS ORDERED: dexAMETHasone 10 MG/ML VIAL ONE (07:24)
[2021-02-02] MEDS ORDERED: KETAMINE HCL 500 MG/5 ML VIAL ONE (07:24)
[2021-02-02] MEDS ORDERED: ROCURONIUM 50 MG/5 ML VIAL IV ONE (07:24)
[2021-02-02] MEDS ORDERED: propofoL 200 MG/20 ML VIAL IV ONE (07:24)
[2021-02-02] MEDS ORDERED: LIDOCAINE 2% MPF 5 ML VIAL ONE (07:24)
[2021-02-02] MEDS ORDERED: ONDANSETRON 4 MG/2 ML VIAL ONE (07:25)
[2021-02-02] MEDS ORDERED: FENTANYL CITR 250 MCG/5 ML ONE (07:25)
[2021-02-02] MEDS ORDERED: MIDAZOLAM HCL 2 MG/2 ML INJ ONE (07:25)
[2021-02-02] MEDS ORDERED: NS 0.9% VIAL 10 ML ONE (07:25)
[2021-02-02] MEDS ORDERED: VECURONIUM 10 MG/VIAL IV ONE (08:57)
[2021-02-02] MEDS ORDERED: KETOROLAC 30 MG/ML INJ ONE (10:42)
[2021-02-02] MEDS ORDERED: MORPHINE 10 MG/ML VIAL ONE (10:59)
[2021-02-02] MEDS ORDERED: HYDROCODONE/APAP 5/325 MG TAB ONE (12:54)
[2021-02-02 13:09] VITALS: BP 119/65; TEMP 97.6; O2SAT 98
--- NOTE | 2021-02-02 18:49 | OP ---
Date of Procedure: 02/02/2021 Surgeon: Renetta Peralta MD Fur Repair Inspector: Ivy Cotto. Preoperative Diagnoses: Menorrhagia, dysmenorrhea, iron deficiency anemia. Postoperative Diagnoses: Menorrhagia, dysmenorrhea, iron deficiency anemia, bowel and bladder adhesi ons from prior section and likely inflammation, and endometriosis. Procedures Performed: 1.Total laparoscopic hysterectomy and bilateral salpingectomy. 2.Lysis of adhesions of the bladder and the sigmoid colon to the left adnexal area, which took at le ast 50% of the time of the procedure and endometriosis fulguration from distal left uterosacral ligam ent. 3.Cystoscopy. Anesthesia: General endotracheal. Estimated Blood Loss: Less than 100. Complications: No complications. Drains: No drains. Condition: Stable. Specimens: Uterus, bilateral tubes. Ovaries normal. Findings: On cystoscopy, both ureteric orifices were normal with strong jets of urine. No evidence of any injury to the bladder or the ureters. Indications: The patient is a 40-year-old female, referred from her primary care provider for heavy periods and iron deficiency anemia. She underwent a transvaginal ultrasound, which showed an enlarge d uterus with multiple leiomyomata, the largest 3.5 cm, slightly less than 3.5 cm. At least 3 were f ound and other close to 3 cm cyst on the right ovary appeared to be physiological. Normal left ovary . So, we discussed endometrial sampling and this was done and there was just circulatory endometrium . No atypia or malignancy was noted. Given her anemia, she was ordered iron studies and then came o mn for labs and the results. She had 2 prior C-sections. IUD or an ablation were discussed with the patient. She is status post Essure placement and does not need any control. The childbearing was complete. Her previous doctor was Dr. Bolden and she was initially preop for an endometrial ablat ion with NovaSure. When the patient came back, we discussed about all her prior options such as sign ificant dysmenorrhea along with her bleeding. She was given tranexamic acid to take and an iron infu noemy was given in the past. She was put on oral iron. Her recent hemoglobin was 9.9 g, so the patie nt was placed on a progesterone pill for bleeding prior to surgery. Then, we discussed about all the different options and how efficacious they could be. The patient leading towards hysterectomy, meghana amos given the degree of anemia and then all the problems with infusions and her completed childbea ring. Also, she did not have any issue and wished to have tubal ligation. Once all the things were discussed and evaluated, then she decided to proceed with a hysterectomy and she was consented for th is understanding risks including bleeding, infection, injury to the bowel, bladder, and ureters. The n, she was consented and brought to the OR. Procedure In Detail: 3 g of Ancef were given per ACOG guidelines based on her weight, then went into the preop discussion about her procedure. Her mom was present at the bedside. Instructions for pos top care were all reviewed. The patient was taken back to OR and placed in supine fashion on the operating table. General anesth esia was given. Placed in a dorsal lithotomy position using Migue stirrups. She had a difficult int ubation and had needed a GlideScope for intubation; however, that went very smoothly and once everyth ing was set, she was placed in a dorsal lithotomy position. SCDs were started. Arms tucked by the s danny. Abdomen, vulva, vagina and perineum prepped and draped in a sterile fashion after pelvic exam w as performed. Then, a speculum was placed to expose the cervix. The anterior lip was grasped with a n Allis clamp. Cervix was dilated to enter the uterine cavity. VCare was introduced and fixed in pl kyleigh, and Hernadez was placed in the bladder and drained and attached for retrograde filling. A 1 cm supraumbilical incision was made with a scalpel using the open laparoscopy technique. Fascia was incised. There was a scar tissue in the pre-fascial plane. Tagged 0 Vicryl sutures were placed on the cut edges and peritoneum picked up with hemostats and entered sharply. S-retractors were plac ed. Jasiel introduced. Site of entry was checked, unremarkable. [facility] Upper abdominal surface was completely unremarkable as well. Status post gallbladder removal and this was not found; however, liver, omentum, stomach, upper abdominal surfaces unremarkable. 10 suprapubic, two 5 left and right lower quadrant ports were placed under direct vision. All the sk in and fascial incisions were injected with Marcaine before making the incisions. The adhesions of garfield serrano sigmoid colon were seen in the left lower quadrant all the way from the natural attachment in mult iple layers all the way down to the insertion of the infundibulopelvic ligament, masking in also the distal part of the tube. Then, there were significant bladder adhesions, especially on the left more than on the right side at the anterior wall of the vagina close to the lower segment of the uterus w here the scar was. Then, both ureteric orifices were well visualized. There was distal endometriosi s in the left uterosacral ligament and the scar was very evident. No other abnormalities were noted. No other endometriosis lesions were noted. Ovaries were completely normal on both sides. No evidence of any tumors. Took down the bowel adhesi ons first sharply with the help of the scissors, then with the help of LigaSure. Dissection was perf ormed starting in the left lower quadrant just below the level of the attachment and then in multiple layers. These adhesions were taken down after creating windows and taking sharply. Once the pelvic brim was well identified, the distal part of the left tube was picked up and it was excised using Li gaSure all the way to the cornual end here. The Essure device was slowly grasped and teased out all the way making sure the coils were all out without causing any trouble or being retained in the body. Utero-ovarian ligament and round ligament were all taken down. Anterior broad ligament opened up and taken all the way to the bladder flap, and posteriorly broad ligament taken down to the uterosacral here and the endometriosis was fulgurated with the help of the bipolar cautery. Once this was done, the peritoneal incision was taken down to the distal uterosacral. On the opposite side, the tube was taken down and the distal part without cutting through the Essure coils to avoid dulling of the LigaSure. Then, utero-ovarian ligament and round ligament were taken d own. anterior and posterior leaf of the broad ligament was taken down and to connect to f inish the bladder flap and posterior taken down too and connected to the posterior wall of the incisi on from the opposite side. The broad ligament was skeletonized. Vessels were exposed anteriorly. Garfield serrano anterior vaginal wall was identified after retrograde filling and draining the bladder. Then, dis section was performed in the anterior vaginal wall, pushing the bladder down. The prevesical fat and the scar tissue from this area were all taken down with the sharp dissection as well as LigaSure. The vessels on the right side were exposed medially. A small incision was made with the help of mono polar in order for me to get a good bite. Bipolar basket tip was introduced, cauterized the uterine artery and veins. Then, they were cut. Cardinal ligaments taken down and dissection carried to the distal uterosacral attachment. Then, in the same fashion, opposite side was done as well and circumf erential colpotomy with a monopolar hook blade. His bladder had to be picked up and systematically v esicovaginal space had to be found, and then the bladder was dissected down in order for me to be abl e to make a good colpotomy. So all the room was created. All the space was dissected due to the pre sence of the endometriosis. There were thick adhesive tissues in this area. Protecting the ureter, all the dissection was done. Then, monopolar hook blade was used to perform a colpotomy. The specim en pulled out through the vagina. It was a tight fit, however, came out. There was bleeding at 2 o' clock and 7 o'clock and this was cauterized with the help of medium tip bipolar. Then, closure with 0 Vicryl, 2 angled sutures and 3 [id number] in the center. There was good attachment of the an terior and posterior vaginal gomez. The uterosacrals were reattached and there was excellent hemosta sis and good support. Both ovaries were retained and were unremarkable. Thorough irrigation and suc tion were performed. No evidence of electrical, mechanical, or thermal injury to the ureters. The s cope was pulled out after de-sufflating the gas and all trocars were removed under direct vision. In jection at the fascia and the skin with Marcaine at all 4 sides. Fascia at the umbilicus was closed with the help of the tagged 0 Vicryl sutures, tied to each other, subcutaneous with simple 0 Vicryl s titch. The suprapubic incision was closed with a simple 0 Vicryl and all skin incisions closed with interrupted 4-0 Vicryl. The vaginal occluder as well as the Hernadez removed. Cystoscopy with 17-Frenc h sheath, 30-degree lens, normal saline was done. Excellent jets of urine from both ureteric orifice s. No evidence of any trauma to the bladder. Bladder was then drained and the patient was recovered from anesthesia and taken to PACU in stable condition. EBL was less than 100 and urine output 300. SK/MODL Voice ID: [id number] Report ID: [id number]
== END 2021-02-02 13:40 | disposition home health service (06) ==
LOC: PRE 06:01
PROVIDERS: ATTEND Obstetrics & Gynecology
PROC: 0UT74ZZ Resection of Bilateral Fallopian Tubes, Percutaneous Endoscopic Approach (ICD-10-PCS; 2021-02-02)
PROC: 0DNN4ZZ Release Sigmoid Colon, Percutaneous Endoscopic Approach (ICD-10-PCS; 2021-02-02)
PROC: 0TNB4ZZ Release Bladder, Percutaneous Endoscopic Approach (ICD-10-PCS; 2021-02-02)
PROC: 0UT94ZZ Resection of Uterus, Percutaneous Endoscopic Approach (ICD-10-PCS; principal; 2021-02-02 07:30)
DX: N80.0 Endometriosis of uterus (principal); D50.0 Iron deficiency anemia secondary to blood loss (chronic); N94.6 Dysmenorrhea, unspecified; D50.9 Iron deficiency anemia, unspecified; D25.9 Leiomyoma of uterus, unspecified; N88.8 Other specified noninflammatory disorders of cervix uteri; N72 Inflammatory disease of cervix uteri; N83.8 Other noninflammatory disorders of ovary, fallopian tube and broad ligament; Z20.822 Contact with and (suspected) exposure to COVID-19
CPT/HCPCS: 36415; 86900; 86850; 81025; 86901; 88307; 81003; 85027; 58571; 44180; 53899; U0002; J2704; J2250; J3010; J1100; J0690 ×2; J7120 ×3; J2405

== ENCOUNTER 2021-05-16 12:13 | Emergency (ER) | payer OTHER ==
--- OUTSIDE RECORDS SUMMARY | 2021-05-16 12:21 | XMS REPORT | Continuity of Care Document ---
:1980 Author Organization [facility] t Address [address] [place] [address] Care Team Providers Name Role Phone Cassandra King Attending Clinician Bert WALLACE Attending Clinician Macie WALLACE Attending Clinician Macie WALLACE Admitting Clinician Problems This patient has no known problems. Allergies, Adverse Reactions, Alerts This patient has no known allergies or adverse reactions. Medications This patient has no known medications. Procedures This patient has no known procedures. Encounters Start End Encounter Admission Attending Care Care Encounter Source Date/Time Date/Time Type Type Clinicians Facility Department ID 2020-07-12 2020-07-12 Telephone DANNY Ureña [id number] 00:00:00 00:00:00 Simona Trujillo DOUBLE END TRIMMER [id number] [facility] [id number] MATERNAL [id number] & CHILD [address] [place] [address] 2020-05-23 2020-05-23 Telephone CLEOPATRA Noel [id number] 00:00:00 00:00:00 Gabe [place] [id number] [facility] [id number] 2020-05-18 2020-05-19 Emergency Gabe Noel [facility] [id number] 15:15:10 14:00:00 Gabe Quijano [place] [id number] [place] [id number] [place] [id number] 2020-05-19 2020-05-19 Telephone [facility] [id number] 00:00:00 00:00:00 Simona Trujillo DOUBLE END TRIMMER [id number] [facility] [id number] MATERNAL [id number] & CHILD [address] [facility] 2020-05-17 2020-05-17 Office [facility] [id number] 10:48:15 11:58:43 Visit Simona Trujillo DOUBLE END TRIMMER [id number] [facility] [id number] MATERNAL [id number] & CHILD 107 [facility] 2020-02-09 2020-02-09 Emergency E [id number] 04:30:00 04:30:00 Results This patient has no known results.
--- NOTE | 2021-05-16 13:30 | ER ---
Nurse's Notes [facility] Name: Astrid Zamora Age: 40 yrs Sex: Female : 1980 Arrival Date: 05/16/2021 Time: 12:16 Bed 30 Private MD: Diagnosis: Otitis media, unspecified, left ear;Cough Presentation: 05/16 12:25 Chief complaint: Patient states: cough, cold, burning in nose, sinus pressure in head, iw mucous, since Saturday, no fever. Coronavirus screen: Client presents with at least one sign or symptom that may indicate coronavirus-19. Ebola Screen: Patient negative for fever greater than or equal to 101.5 degrees Fahrenheit, and additional compatible Ebola Virus Disease symptoms Patient denies exposure to infectious person. Patient denies travel to an Ebola-affected area in the 21 days before illness onset. No symptoms or risks identified at this time. Initial Sepsis Screen: Does the patient meet any 2 criteria? No. Patient's initial sepsis screen is negative. Does the patient have a suspected source of infection? No. Patient's initial sepsis screen is negative. Risk Assessment: Do you want to hurt yourself or someone else? Patient reports no desire to harm self or others. Onset of symptoms was May 12, 2021. 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 - Social history:: Smoking status: Patient denies any tobacco usage or history of. Smoking status: Patient denies any tobacco usage or history of. Screenin:17 Abuse screen: Denies threats or abuse. Denies injuries from another. Nutritional ld1 screening: No deficits noted. Tuberculosis screening: No symptoms or risk factors identified. Fall Risk None identified. Assessment: 13:17 General: Appears in no apparent distress. comfortable, Behavior is calm, cooperative, ld1 appropriate for age. Pain: Denies pain. Neuro: Level of Consciousness is awake, alert, obeys commands, Oriented to person, place, time, situation, Reports headache frontal area. Cardiovascular: Capillary refill < 3 seconds Patient's skin is warm and dry. Respiratory: Airway is patent Respiratory effort is even, unlabored, Respiratory pattern is regular, symmetrical. Respiratory: Reports cough that is non-productive. GI: Abdomen is flat, non-distended. : No signs and/or symptoms were reported regarding the genitourinary system. EENT: No signs and/or symptoms were reported regarding the EENT system. EENT: Reports nasal congestion. Derm: No signs and/or symptoms reported regarding the dermatologic system. Musculoskeletal: No signs and/or symptoms reported regarding the musculoskeletal system. 13:40 General: Appears in no apparent distress. comfortable, Behavior is calm, cooperative, ld1 appropriate for age. Pain: Complains of pain in left arm Pain radiates to left hand Pain currently is 9 out of 10 on a pain scale. Quality of pain is described as sharp, stabbing, Pain began 4 hours ago. Is continuous. Neuro: Level of Consciousness is awake, alert, obeys commands, Oriented to person, place, time, situation, Reports headache frontal area, numbness in left hand and left arm. Cardiovascular: Capillary refill < 3 seconds Patient's skin is warm and dry. Respiratory: Airway is patent Respiratory effort is even, unlabored, Respiratory pattern is regular, symmetrical. GI: Abdomen is flat, non-distended. : No signs and/or symptoms were reported regarding the genitourinary system. EENT: No signs and/or symptoms were reported regarding the EENT system. Derm: No signs and/or symptoms reported regarding the dermatologic system. Musculoskeletal: No signs and/or symptoms reported regarding the musculoskeletal system. 13:48 Reassessment: Patient appears in no apparent distress at this time. Patient and/or vg1 family updated on plan of care and expected duration. Pain level reassessed. Patient is alert, oriented x 3, equal unlabored respirations, skin warm/dry/pink. Vital Signs: 12:25 BP 115 / 88; Pulse 86; Resp 18; Temp 97.8; Pulse Ox 100% ; Weight 109.32 kg; Height 5 iw ft. 4 in. (162.56 cm); 12:25 Body Mass Index 41.37 (109.32 kg, 162.56 cm) ED Course: 12:16 Patient arrived in ED. 12:27 Triage completed. iw 12:28 Arm band placed on. iw 13:00 Rose Woody, RN is Primary Nurse. ld1 13:08 Adis Chilel NP is PHCP. pm1 13:08 Jadon Mayo MD is Attending Physician. pm1 13:17 Patient has correct armband on for positive identification. Bed in low position. Call ld1 light in reach. Side rails up X2. Pulse ox on. NIBP on. 13:17 No provider procedures requiring assistance completed. ld1 13:48 Patient did not have IV access during this emergency room visit. vg1 Administered Medications: 13:35 Drug: Rocephin (cefTRIAXone) 1 grams Route: IM; Site: left gluteus; ld1 13:48 Follow up: Response: No adverse reaction vg1 13:35 Drug: predniSONE 60 mg Route: PO; ld1 13:48 Follow up: Response: No adverse reaction vg1 Outcome: 13:30 Discharge ordered by MD. pm1 13:48 Discharged to home ambulatory. vg1 13:48 Condition: stable 13:48 Discharge instructions given to patient, Instructed on discharge instructions, follow up and referral plans. Demonstrated understanding of instructions, follow-up care, medications, Prescriptions given X 2. 13:48 Patient left the ED. vg1 Signatures: Marisa Ureña RN RN Adis Chilel NP COSMETOLOGY EDUCATOR pm1 Steph Pandey RN RN vg1 Rose Woody RN RN ld1 Radha Hunt
--- NOTE | 2021-05-16 13:31 | EDPHYS ---
Physician Documentation [facility] Name: Astrid Zamora Age: 40 yrs Sex: Female : 1980 Arrival Date: 05/16/2021 Time: 12:16 Bed 30 Private MD: ED Physician Jadon Mayo HPI: 05/16 13:29 This 40 yrs old Black Female presents to ER via Ambulatory with complaints of Sinus pm1 Congestion. 13:29 The patient or guardian reports cough, with productive sputum, sinus congestion. Onset: pm1 The symptoms/episode began/occurred 2 day(s) ago. Severity of symptoms: in the emergency department the symptoms are actually worse. Modifying factors: The symptoms are alleviated by nothing, the symptoms are aggravated by nothing. Associated signs and symptoms: Pertinent positives: left ear pain, Pertinent negatives: fever, sore throat, shortness of breath. The patient has experienced similar episodes in the past, a few times. The patient has not recently seen a physician. [employer]: 12:28 LMP N/A - Hysterectomy iw Historical: - Allergies: 12:27 No Known Allergies; iw - Home Meds: 12:27 hydrochlorothiazide 25 mg Oral tab 1 tab once daily [Active]; Iron CR Oral daily iw [Active]; - PMHx: 12:27 Hypertension; iw - PSHx: 12:27 hysterectomy; tubal ligation; Cholecystectomy; iw - Immunization history:: Client reports receiving the 2nd dose of the Covid vaccine. - Social history:: Smoking status: Patient denies any tobacco usage or history of. Smoking status: Patient denies any tobacco usage or history of. ROS: 13:29 Constitutional: Negative for fever, chills, and weight loss. pm1 13:29 Neck: Negative for injury, pain, and swelling, Cardiovascular: Negative for chest pain, palpitations, and edema. 13:29 Abdomen/GI: Negative for abdominal pain, nausea, vomiting, diarrhea, and constipation, Back: Negative for injury and pain, Skin: Negative for injury, rash, and discoloration, Neuro: Negative for headache, weakness, numbness, tingling, and seizure. 13:29 ENT: Positive for ear pain, sinus congestion, sinus pain, Negative for sore throat. 13:29 Respiratory: Positive for cough, with yellow sputum. 13:29 All other systems are negative. Exam: 13:29 Constitutional: This is a well developed, well nourished patient who is awake, alert, pm1 and in no acute distress. Head/Face: Normocephalic, atraumatic. 13:29 Neck: Trachea midline, no thyromegaly or masses palpated, and no cervical lymphadenopathy. Supple, full range of motion without nuchal rigidity, or vertebral point tenderness. No Meningismus. 13:29 Skin: Warm, dry with normal turgor. Normal color with no rashes, no lesions, and no evidence of cellulitis. MS/ Extremity: Pulses equal, no cyanosis. Neurovascular intact. Full, normal range of motion. 13:29 Eyes: Exam is negative for acute changes, Periorbital structures: appear normal, Extraocular movements: no acute changes, Conjunctiva: no acute changes, no injection. 13:29 ENT: External ear(s): are unremarkable, Ear canal(s): are normal, TM's: bulging, on the left, erythema, that is moderate, on the left, Examination of the other ear shows no obvious abnormality. 13:29 Cardiovascular: Exam negative for acute changes, Rate: normal, Rhythm: regular, Pulses: no pulse deficits are appreciated. 13:29 Respiratory: Exam negative for acute changes, respiratory distress, shortness of breath, Breath sounds: are clear throughout. 13:29 Neuro: Exam negative for acute changes, Orientation: is normal, Mentation: is normal, Motor: is normal, moves all fours. Vital Signs: 12:25 BP 115 / 88; Pulse 86; Resp 18; Temp 97.8; Pulse Ox 100% ; Weight 109.32 kg; Height 5 iw ft. 4 in. (162.56 cm); 12:25 Body Mass Index 41.37 (109.32 kg, 162.56 cm) iw MDM: 13:09 Patient medically screened. [facility] 13:29 Data reviewed: vital signs. Data interpreted: Pulse oximetry: on room air is 100 %. pm1 Interpretation: normal. Counseling: I had a detailed discussion with the patient and/or guardian regarding: the historical points, exam findings, and any diagnostic results supporting the discharge/admit diagnosis, the need for outpatient follow up, to return to the emergency department if symptoms worsen or persist or if there are any questions or concerns that arise at home. Administered Medications: 13:35 Drug: Rocephin (cefTRIAXone) 1 grams Route: IM; Site: left gluteus; ld1 13:48 Follow up: Response: No adverse reaction vg1 13:35 Drug: predniSONE 60 mg Route: PO; ld1 13:48 Follow up: Response: No adverse reaction vg1 Disposition: 18:51 Co-signature as Attending Physician, Jadon Mayo MD I agree with the assessment and catrina plan of care. Disposition Summary: 05/16/21 13:30 Discharge Ordered Location: Home pm1 Problem: new pm1 Symptoms: have improved pm1 Condition: Stable pm1 Diagnosis - Otitis media, unspecified, left ear pm1 - Cough pm1 Followup: pm1 - With: Emergency Department - When: As needed - Reason: Worsening of condition Followup: pm1 - With: Private Physician - When: 2 - 3 days - Reason: Recheck today's complaints, Continuance of care, Re-evaluation by your physician Discharge Instructions: - Discharge Summary Sheet pm1 - Otitis Media, Adult pm1 - Cough, Adult pm1 Forms: - Medication Reconciliation Form pm1 - Thank You Letter pm1 - Antibiotic Education pm1 - Prescription Opioid Use pm1 Prescriptions: - Augmentin 875-125 mg Oral Tablet - take 1 tablet by ORAL route every 12 hours for 10 days; 20 tablet; Refills: 0, pm1 Product Selection Permitted - Medrol (Tariq) 4 mg Oral Tablets, Dose Pack - take 1 tablet by ORAL route as directed - follow package instructions; 1 pm1 packet; Refills: 0, Product Selection Permitted Signatures: Jadon Mayo MD MD cha Williams, Irene RN Adis Sawyer NP CREDIT COLLECTOR pm1 Rose Woody RN RN ld1 Steph Pandey RN vg1
[2021-05-16] MEDS ORDERED: CEFTRIAXONE 1000 MG/VIAL ONE (13:45)
[2021-05-16] MEDS ORDERED: predniSONE 20 MG TAB ONE (13:45)
[2021-05-16] MEDS ORDERED: LIDOCAINE 1% MPF 5 ML VIAL ONE (13:48)
[2021-05-16 13:52] VITALS: BP 115/88; TEMP 97.8; O2SAT 100
== END 2021-05-16 13:48 | disposition home or self-care (01) ==
LOC: ER 12:13
DX: H66.92 Otitis media, unspecified, left ear (principal); I10 Essential (primary) hypertension
CPT/HCPCS: 96372; 99283; J7512

== ENCOUNTER 2023-04-30 06:57 | Emergency (ER) | payer BC ==
--- OUTSIDE RECORDS SUMMARY | 2023-04-30 07:02 | XMS REPORT | Continuity of Care Document ---
:1980 Author Organization [facility] t Address [address] [place] [address] [place] [id number] Care Team Providers Name Role Phone ARIANNA AVINA JR Primary Care Physician Unavailable Ector BARKLEY Attending Clinician Unavailable Ector Downing Attending Clinician LUIS MCCABE Attending Clinician Unavailable Luis Duran Attending Clinician Doctor Unassigned, [place] Attending Clinician Unavailable Simona King Attending Clinician Gabe Noel MD Attending Clinician Gabe Quijano MD Attending Clinician SIMONA MCKEON Attending Clinician Unavailable TANG BANUELOS Attending Clinician Unavailable Ector BARKLEY Admitting Clinician Unavailable Gabe Quijano MD Admitting Clinician Payers Payer Name Policy Type Policy Number Effective Date Expiration Date S hammad NICHOLS FROM [id number] [address] [facility] 00:00:00 Problems Condition Condition Condition Status Onset Resolution Last Treating Co mments Source Name Details Category Date Date Treatment Clinician Date Trichomona Trichomona Disease Active U nivers l l 7-09 ity [place] [facility] Chest pain Chest pain Disease Active U nivers 7-08 ity of 00:00: [address] Well woman Well woman Disease Active U nivers exam exam 8-10 ity of 00:00: [place] [facility] Morbid Morbid Disease Active Univers obesity obesity 7-15 ity of 00:00: [place] [facility] Heavy Heavy Disease Active Univers menses menses 7-15 ity of 00:00: [address] History of History of Disease Active U nivers tubal tubal 7-15 ity of ligation ligation 00:00: [address] Allergies, Adverse Reactions, Alerts Allergy Allergy Status Severity Reaction(s) Onset Inactive Treating Comm ents Source Name Type Date Date Clinician NO KNOWN Drug Active Univers ALLERGIE Class ity of S [facility] Social History Social Habit Start Date Stop Date Quantity Comments Source History SDOH University o f Alcohol Frequency [facility] edical Branch History [facility] University o f Alcohol Std [place] [facility] Drinks Branch History [facility] o f Alcohol Binge [place] Medic al Branch Exposure to 2022-08-25 2022-09-04 Not sure University SARS-CoV-2 00:00:00 19:00:00 [place] [facility] (event) Branch Alcohol intake 2022-01-30 2022-01-30 Current University of 00:00:00 00:00:00 non-drinker of [facility] alcohol (finding) Branch Alcohol Comment 2020-05-17 2020-05-17 socially Universit y of 00:00:00 00:00:00 [facility] Tobacco use and 2014-06-03 2014-06-03 Smokeless tobacco Un iversity of exposure 00:00:00 00:00:00 non-user [facility] Sex Assigned At [birth year] Universit y of 00:00:00 00:00:00 [facility] Smoking Status Start Date Stop Date Source Never smoked tobacco [facility] Medications Ordered Filled Start Stop Current Ordering Indication Dosage Frequency Signature Comments Components Source Medication Medication Date Date Medication? Clinician (SIG) Name Name naproxen 2022-1 2022- No 500mg 500 mg, Univ ers (NAPROSYN) 0-26 10-26 Oral, ity of tablet 500 00:45: 00:19 ONCE, 1 [place] mg 00 :00 dose, On Medical Tue Branch 09/04/22 at 1945, Routine naproxen 2021-11 Yes [id number] 500mg Take 1 Univers (NAPROSYN) 0-25 [id number] tablet by it y of 500 mg 00:00: mouth in [place] tablet 00 the Medical morning Branch and 1 tablet in the evening. Take with meals. ondansetron 2021- No 4mg 4 mg, Slow Univers (ZOFRAN 01-30 IV Push, ity of (PF)) 18:30: 17:45 ONCE, 1 [place] injection 4 00 :00 dose, On Medi eduarda mg Tue Branch 01/30/22 at 1330, GULSHAN NaCl 0.9% 2021- No 1000mL at 999 Uni vers (NS) bolus 01-30 mL/hr, ity of infusion 18:30: 19:30 1,000 mL, Ike as 1,000 mL 00 :00 IV Medical Infusion, Branch ONCE, 1 dose, On Sat01/30/22 at 1330, GULSHAN ondansetron Yes [id number] 4mg Take 1 Univers 4 mg 3-22 tablet by ity of disintegrat 00:00: mouth [place] ing tablet 00 every 12 Medic al (twelve) Branch hours as needed for Nausea and Vomiting (N/V). ondansetron Yes [id number] 4mg Take 1 Univers 4 mg 3-22 tablet by ity of disintegrat 00:00: mouth [place] ing tablet 00 every 12 Medic al (twelve) Branch hours as needed for Nausea and Vomiting (N/V). acetaminoph 2021- No 4647 1{tbl} Take 1 U nivers en-codeine 01-3030 tablet by ity of (TYLENOL-CO 00:00: 04:59 [place] DEINE #3) 00 :00 every 6 Medical 300-30 mg (six) Branch tablet hours as needed for Pain (scale 7-10) for up to 7 days. Indication s: acute pain aspirin-kyleigh 2020-0 Yes 1{tbl} Take 1 Tab Univers taminophen- 7-09 by mouth ity of caffeine 19:37: every 6 [place] (EXCEDRIN 48 (six) Medical MIGRAINE) hours as Branch 250-250-65 needed for mg per Pain. tablet aspirin-kyleigh 2020-0 Yes 1{tbl} Take 1 Tab Univers taminophen- 7-09 by mouth ity of caffeine 19:37: every 6 [place] (EXCEDRIN 48 (six) Medical MIGRAINE) hours as Branch 250-250-65 needed for mg per Pain. tablet aspirin-kyleigh 2020-0 Yes 1{tbl} Take 1 Tab Univers taminophen- 7-09 by mouth ity of caffeine 19:37: every 6 [place] (EXCEDRIN 48 (six) Medical MIGRAINE) hours as Branch 250-250-65 needed for mg per Pain. tablet aspirin-kyleigh 2020-0 Yes 1{tbl} Take 1 Tab Univers taminophen- 7-09 by mouth ity of caffeine 14:37: every 6 [place] (EXCEDRIN 48 (six) Medical MIGRAINE) hours as Branch 250-250-65 needed for mg per Pain. tablet aspirin-kyleigh 2020-0 Yes 1{tbl} Take 1 Tab Univers taminophen- 7-09 by mouth ity of caffeine 14:37: every 6 [place] (EXCEDRIN 48 (six) Medical MIGRAINE) hours as Branch 250-250-65 needed for mg per Pain. tablet aspirin-kyleigh 2020-0 Yes 1{tbl} Take 1 Tab Univers taminophen- 7-09 by mouth ity of caffeine 14:37: every 6 [place] (EXCEDRIN 48 (six) Medical MIGRAINE) hours as Branch 250-250-65 needed for mg per Pain. tablet iron 2020-0 2020- No 400mg 400 mg, IV Unive rs sucrose 05-19 Infusion, ity of (VENOFER) 14:30: 18:31 ONCE[place] 400 mg in 00 :00 05/19/20 at Medic al NaCl 0.9% 0930, For Branc h (NS) 250 mL 1 dose infusion triamterene 2020-0 2020- No 1{tbl} 1 tablet, Univers -hydrochlor 05-19 Oral, ity of othiazid 14:00: 13:25 DAILY, [place] (MAXZIDE-25 00 :17 First dose Me dical ) 37.5-25 on [place] Branch mg tablet 1 05/19/20 at tablet 0900, Until Discontinu ed, Routine hydralAZINE 2020-0 Yes 10mg 10 mg, Univ ers (APRESOLINE 05-19 Intravenou it y of ) injection 05:27: s, Q6HPRN, [place] 10 mg 39 Starting Medical Lyndsey 05/19/20 Branch at 0027, Until Discontinu ed, Routine, Hypertensi on sucralfate 2020-0 Yes 1g 1 g, Oral, U nivers (CARAFATE) 05-19 AC+HS, ity of tablet 1 g 02:00: [place] 00 on Sat05/18/20 at Branch 2100, Until Discontinu ed, Routine aspirin-kyleigh 2020-0 Yes 1{tbl} Take 1 Tab Univers taminophen- 05-19 by mouth ity of caffeine 00:46: every 6 [place] (EXCEDRIN 51 (six) Medical MIGRAINE) hours as Branch 250-250-65 needed for mg per Pain. tablet ondansetron 2020-0 Yes 4mg 4 mg, Slow Univers (ZOFRAN 05-19 IV Push, ity of (PF)) 00:46: Q6HPRN, [place] injection 4 17 Starting Medi eduarda mg Sat05/18/20 Branch at 1946, Until Discontinu ed, Routine, Nausea and Vomiting (N/V) HYDROcodone 2020-0 Yes 1{tbl} 1 tablet, Univers -acetaminop 05-19 Oral, ity of hen (NORCO) 00:46: Q6HPRN, [place] 10-325 mg 13 Starting Medica l tablet 1 Sat05/18/20 Branc h tablet at 194, Until Discontinu ed, Routine, Pain (scale 7-10) traMADol 2019-0 2020- No 50mg 50 mg, Univer s (ULTRAM) 05-19 07-11 Oral, ity of tablet 50 00:46: 00:45 Q8HPRN, [place] mg 10 :10 Starting Medical Sat05/18/20 Branch at 1946, Until 05/20/20 at 1945, Routine, Pain (scale 4-6) acetaminoph 2020-0 Yes 650mg 650 mg, Un nellie en 7-09 Oral, ity of (TYLENOL) 00:46: Q6HPRN, [place] tablet 650 06 Starting Medic al mg 05/18/20 Branch at 1946, Until Discontinu ed, Routine, Pain (scale 1-3) ferrous 2020-0 Yes [id number] 300mg Take 5 mL Univers sulfate 300 7-09 by mouth 2 it y of mg (60 mg 00:00: (two) [place] iron)/5 mL 00 times Medical solution daily. Branch Take with vitamin C supplement ferrous 2020-0 Yes [id number] 300mg Take 5 mL Univers sulfate 300 7-09 by mouth 2 it y of mg (60 mg 00:00: (two) [place] iron)/5 mL 00 times Medical solution daily. Branch Take with vitamin C supplement ferrous 2020-0 Yes [id number] 300mg Take 5 mL Univers sulfate 300 7- by mouth 2 it y of mg (60 mg 00:00: (two) [place] iron)/5 mL 00 times Medical solution daily. Branch Take with vitamin C supplement ferrous 2020-0 Yes [id number] 300mg Take 5 mL Univers sulfate 300 7- by mouth 2 it y of mg (60 mg 00:00: (two) [place] iron)/5 mL 00 times Medical solution daily. Branch Take with vitamin C supplement ferrous 2020-0 Yes [id number] 300mg Take 5 mL Univers sulfate 300 7-09 by mouth 2 it y of mg (60 mg 00:00: (two) [place] iron)/5 mL 00 times Medical solution daily. Branch Take with vitamin C supplement ferrous 2020-0 Yes [id number] 300mg Take 5 mL Univers sulfate 300 7- by mouth 2 it y of mg (60 mg 00:00: (two) [place] iron)/5 mL 00 times Medical solution daily. Branch Take with vitamin C supplement metroNIDAZO 2020-0 2020- No [id number] 2000mg Take 4 Univers LE (FLAGYL) 05-19 07-10 tablets by i ty of 500 mg 00:00: 04:59 mouth [place] tablet 00 :00 now for 1 Medical dose. Branch aspirin-kyleigh 2020-0 Yes 1{tbl} Take 1 Tab Univers taminophen- -07 by mouth ity of caffeine 16:03: every 6 [place] (EXCEDRIN 30 (six) Medical MIGRAINE) hours as Branch 250-250-65 needed for mg per Pain. tablet aspirin-kyleigh 2020-0 Yes 1{tbl} Take 1 Tab Univers taminophen- 7-07 by mouth ity of caffeine 16:03: every 6 [place] (EXCEDRIN 30 (six) Medical MIGRAINE) hours as Branch 250-250-65 needed for mg per Pain. tablet triamterene 2020-0 Yes TAKE 1 Univ ers -hydrochlor 6-10 TABLET BY ity of othiazid 00:00: MOUTH ONCE [place] 37.5-25 mg 00 DAILY IN Medic al tablet THE Branch MORNING triamterene 2020-0 Yes TAKE 1 Univ ers -hydrochlor 6-10 TABLET BY ity of othiazid 00:00: MOUTH ONCE [place] 37.5-25 mg 00 DAILY IN Medic al tablet THE Branch MORNING triamterene 2020-0 Yes TAKE 1 Univ ers -hydrochlor 6-10 TABLET BY ity of othiazid 00:00: MOUTH ONCE [place] 37.5-25 mg 00 DAILY IN Medic al tablet THE Branch MORNING triamterene 2020-0 Yes TAKE 1 Univ ers -hydrochlor 6-10 TABLET BY ity of othiazid 00:00: MOUTH ONCE [place] 37.5-25 mg 00 DAILY IN Medic al tablet THE Branch MORNING triamterene 2020-0 Yes TAKE 1 Univ ers -hydrochlor 6-10 TABLET BY ity of othiazid 00:00: MOUTH ONCE [place] 37.5-25 mg 00 DAILY IN Medic al tablet THE Branch MORNING triamterene 2020-0 Yes TAKE 1 Univ ers -hydrochlor 6-10 TABLET BY ity of othiazid 00:00: MOUTH ONCE [place] 37.5-25 mg 00 DAILY IN Medic al tablet THE Branch MORNING triamterene 2020-0 Yes TAKE 1 Univ ers -hydrochlor 6-10 TABLET BY ity of othiazid 00:00: MOUTH ONCE [place] 37.5-25 mg 00 DAILY IN Medic al tablet THE Branch MORNING triamterene 2020-0 Yes TAKE 1 Univ ers -hydrochlor 6-10 TABLET BY ity of othiazid 00:00: MOUTH ONCE [place] 37.5-25 mg 00 DAILY IN Medic al tablet THE Branch MORNING triamterene 2020-0 Yes TAKE 1 Univ ers -hydrochlor 6-10 TABLET BY ity of othiazid 00:00: MOUTH ONCE [place] 37.5-25 mg 00 DAILY IN Medic al tablet THE Branch MORNING Pantoprazol 2018-0 Yes [id number] 40mg Take 40 mg Univers e 4-20 by mouth ity of (PROTONIX) 00:00: daily. [place] 40 mg 00 Medical delayed-rel Branch ease suspension sucralfate 0 Yes [id number] 1g Take 1 Univers 1 gram 4-20 tablet by ity of tablet 00:00: mouth [place] 00 before Medical meals and Branch at bedtime. Pantoprazol Yes [id number] 40mg Take 40 mg Univers e 4-20 by mouth ity of (PROTONIX) 00:00: daily. [place] 40 mg 00 Medical delayed-rel Branch ease suspension sucralfate Yes [id number] 1g Take 1 Univers 1 gram 4-20 tablet by ity of tablet 00:00: mouth [place] 00 before Medical meals and Branch at bedtime. Pantoprazol Yes [id number] 40mg Take 40 mg Univers e 4-20 by mouth ity of (PROTONIX) 00:00: daily. [place] 40 mg 00 Medical delayed-rel Branch ease suspension sucralfate Yes [id number] 1g Take 1 Univers 1 gram 4-20 tablet by ity of tablet 00:00: mouth [place] 00 before Medical meals and Branch at bedtime. Pantoprazol Yes [id number] 40mg Take 40 mg Univers e 4-20 by mouth ity of (PROTONIX) 00:00: daily. [place] 40 mg 00 Medical delayed-rel Branch ease suspension sucralfate 0 Yes [id number] 1g Take 1 Univers 1 gram 4-20 tablet by ity of tablet 00:00: mouth [place] 00 before Medical meals and Branch at bedtime. Pantoprazol 0 Yes [id number] 40mg Take 40 mg Univers e 4-20 by mouth ity of (PROTONIX) 00:00: daily. [place] 40 mg 00 Medical delayed-rel Branch ease suspension sucralfate 2018-0 Yes [id number] 1g Take 1 Univers 1 gram 4-20 tablet by ity of tablet 00:00: mouth [place] 00 before Medical meals and Branch at bedtime. Pantoprazol 2018-0 Yes [id number] 40mg Take 40 mg Univers e 4-20 by mouth ity of (PROTONIX) 00:00: daily. [place] 40 mg 00 Medical delayed-rel Branch ease suspension sucralfate 2018- Yes [id number] 1g Take 1 Univers 1 gram 4-20 tablet by ity of tablet 00:00: mouth [place] 00 before Medical meals and Branch at bedtime. Pantoprazol 2018-0 Yes [id number] 40mg Take 40 mg Univers e 4-20 by mouth ity of (PROTONIX) 00:00: daily. [place] 40 mg 00 Medical delayed-rel Branch ease suspension sucralfate 2018-0 Yes [id number] 1g Take 1 Univers 1 gram 4-20 tablet by ity of tablet 00:00: mouth [place] 00 before Medical meals and Branch at bedtime. Pantoprazol 0 Yes [id number] 40mg Take 40 mg Univers e 4-20 by mouth ity of (PROTONIX) 00:00: daily. [place] 40 mg 00 Medical delayed-rel Branch ease suspension sucralfate 0 Yes [id number] 1g Take 1 Univers 1 gram 4-20 tablet by ity of tablet 00:00: mouth [place] 00 before Medical meals and Branch at bedtime. Pantoprazol 0 Yes [id number] 40mg Take 40 mg Univers e 4-20 by mouth ity of (PROTONIX) 00:00: daily. [place] 40 mg 00 Medical delayed-rel Branch ease suspension sucralfate 0 Yes [id number] 1g Take 1 Univers 1 gram 4-20 tablet by ity of tablet 00:00: mouth [place] 00 before Medical meals and Branch at bedtime. Pantoprazol 0 Yes [id number] 40mg Take 40 mg Univers e 4-20 by mouth ity of (PROTONIX) 00:00: daily. [place] 40 mg 00 Medical delayed-rel Branch ease suspension sucralfate 2018-0 Yes [id number] 1g Take 1 Univers 1 gram 4-20 tablet by ity of tablet 00:00: mouth [place] 00 before Medical meals and Branch at bedtime. ranitidine 0 Yes [id number] 150mg Take 1 Univers (ZANTAC) 3-24 tablet by ity of 150 mg 00:00: mouth 2 [place] tablet 00 (two) Medical times Branch daily. Follow up with your MD for further evaluation and treatment. lisinopril 2018-0 Yes [id number] 10mg Take 1 Univers 10 mg 3-24 tablet by ity of tablet 00:00: mouth at [place] 00 bedtime. Medical Branch ranitidine 2018-0 Yes [id number] 150mg Take 1 Univers (ZANTAC) 3-24 tablet by ity of 150 mg 00:00: mouth 2 [place] tablet 00 (two) Medical times Branch daily. Follow up with your MD for further evaluation and treatment. lisinopril 2018-0 Yes [id number] 10mg Take 1 Univers 10 mg 3-24 tablet by ity of tablet 00:00: mouth at [place] 00 bedtime. Medical Branch ranitidine Yes [id number] 150mg Take 1 Univers (ZANTAC) 3-24 tablet by ity of 150 mg 00:00: mouth 2 [place] tablet 00 (two) Medical times Branch daily. Follow up with your MD for further evaluation and treatment. lisinopril Yes [id number] 10mg Take 1 Univers 10 mg 3-24 tablet by ity of tablet 00:00: mouth at [place] 00 bedtime. Medical Branch ranitidine Yes [id number] 150mg Take 1 Univers (ZANTAC) 3-24 tablet by ity of 150 mg 00:00: mouth 2 [place] tablet 00 (two) Medical times Branch daily. Follow up with your MD for further evaluation and treatment. lisinopril Yes [id number] 10mg Take 1 Univers 10 mg 3-24 tablet by ity of tablet 00:00: mouth at [place] 00 bedtime. Medical Branch ranitidine Yes [id number] 150mg Take 1 Univers (ZANTAC) 3-24 tablet by ity of 150 mg 00:00: mouth 2 [place] tablet 00 (two) Medical times Branch daily. Follow up with your MD for further evaluation and treatment. lisinopril Yes [id number] 10mg Take 1 Univers 10 mg 3-24 tablet by ity of tablet 00:00: mouth at [place] 00 bedtime. Medical Branch ranitidine Yes [id number] 150mg Take 1 Univers (ZANTAC) 3-24 tablet by ity of 150 mg 00:00: mouth 2 [place] tablet 00 (two) Medical times Branch daily. Follow up with your MD for further evaluation and treatment. lisinopril Yes [id number] 10mg Take 1 Univers 10 mg 3-24 tablet by ity of tablet 00:00: mouth at [place] 00 bedtime. Medical Branch ranitidine Yes [id number] 150mg Take 1 Univers (ZANTAC) 3-24 tablet by ity of 150 mg 00:00: mouth 2 [place] tablet 00 (two) Medical times Branch daily. Follow up with your MD for further evaluation and treatment. lisinopril Yes [id number] 10mg Take 1 Univers 10 mg 3-24 tablet by ity of tablet 00:00: mouth at [place] 00 bedtime. Medical Branch ranitidine Yes [id number] 150mg Take 1 Univers (ZANTAC) 3-24 tablet by ity of 150 mg 00:00: mouth 2 [place] tablet 00 (two) Medical times Branch daily. Follow up with your MD for further evaluation and treatment. lisinopril Yes [id number] 10mg Take 1 Univers 10 mg 3-24 tablet by ity of tablet 00:00: mouth at [place] 00 bedtime. Medical Branch ranitidine Yes [id number] 150mg Take 1 Univers (ZANTAC) 3-24 tablet by ity of 150 mg 00:00: mouth 2 [place] tablet 00 (two) Medical times [place] daily. Follow up with your MD for further evaluation and treatment. lisinopril Yes [id number] 10mg Take 1 Univers 10 mg 3-24 tablet by ity of tablet 00:00: mouth at [place] 00 bedtime. Medical Branch ranitidine Yes [id number] 150mg Take 1 Univers (ZANTAC) 3-24 tablet by ity of 150 mg 00:00: mouth 2 [place] tablet 00 (two) Medical times [place] daily. Follow up with your MD for further evaluation and treatment. lisinopril Yes [id number] 10mg Take 1 Univers 10 mg 3-24 tablet by ity of tablet 00:00: mouth at [place] 00 bedtime. Medical Branch norgestimat Yes [id number] 1{tbl} Take 1 Univers e-ethinyl 8-10 tablet by ity o f estradiol 00:00: mouth [place] (ORTHO 00 daily. [facility] TRI-CYCLEN Branch LO, 28,) 0.18/0.215/ 0.25 mg-25 mcg tablet norgestimat Yes [id number] 1{tbl} Take 1 Univers e-ethinyl 8-10 tablet by ity o f estradiol 00:00: mouth [place] (ORTHO 00 daily. [facility], ,) 0.18/0.215/ 0.25 mg-25 mcg tablet norgestimat 2016-0 Yes [id number] 1{tbl} Take 1 Univers e-ethinyl 8-10 tablet by ity o f estradiol 00:00: mouth [place] (ORTHO 00 daily. [facility], ,) 0.18/0.215/ 0.25 mg-25 mcg tablet norgestimat 2015-0 Yes [id number] 1{tbl} Take 1 Univers e-ethinyl 8-10 tablet by ity o f estradiol 00:00: mouth [place] (ORTHO 00 daily. [facility], ,) 0.18/0.215/ 0.25 mg-25 mcg tablet norgestimat 2015-0 Yes [id number] 1{tbl} Take 1 Univers e-ethinyl 8-10 tablet by ity o f estradiol 00:00: mouth [place] (ORTHO 00 daily. [facility], ,) 0.18/0.215/ 0.25 mg-25 mcg tablet norgestimat 2015-0 Yes [id number] 1{tbl} Take 1 Univers e-ethinyl 8-10 tablet by ity o f estradiol 00:00: mouth [place] (ORTHO 00 daily. [facility], ,) 0.18/0.215/ 0.25 mg-25 mcg tablet norgestimat 2015-0 Yes [id number] 1{tbl} Take 1 Univers e-ethinyl 8-10 tablet by ity o f estradiol 00:00: mouth [place] (ORTHO 00 daily. [facility], ,) 0.18/0.215/ 0.25 mg-25 mcg tablet norgestimat 2015-0 Yes [id number] 1{tbl} Take 1 Univers e-ethinyl 8-10 tablet by ity o f estradiol 00:00: mouth [place] (ORTHO 00 daily. [facility], ,) 0.18/0.215/ 0.25 mg-25 mcg tablet norgestimat 2015-0 Yes [id number] 1{tbl} Take 1 Univers e-ethinyl 8-10 tablet by ity o f estradiol 00:00: mouth [place] (ORTHO 00 daily. Medical TRI-CYCLEN Branch LO, 28,) 0.18/0.215/ 0.25 mg-25 mcg tablet norgestimat Yes [id number] 1{tbl} Take 1 Univers e-ethinyl 8-10 tablet by ity o f estradiol 00:00: mouth [place] (ORTHO 00 daily. Medical TRI-CYCLEN Branch LO, 28,) 0.18/0.215/ 0.25 mg-25 mcg tablet aspirin-kyleigh 2013-11 Yes 1{tbl} Take 1 Tab Univers taminophen- 1-21 by mouth ity of caffeine 15:04: every 6 [place] (EXCEDRIN 29 (six) Medical MIGRAINE) hours as Branch 250-250-65 needed for mg per Pain. tablet Immunizations Ordered Filled Immunization Date Status Comments [facility] e Immunization Name Name PPD (TB) 2014-07-13 Completed University of 00:00:00 [facility] PPD (TB) 2014-07-13 Completed University of 00:00:00 [facility] PPD (TB) 2014-07-13 Completed University of 00:00:00 [facility] PPD (TB) 2014-07-13 Completed University of 00:00:00 [facility] PPD (TB) 2014-07-13 Completed University of 00:00:00 [facility] PPD (TB) 2014-07-13 Completed University of 00:00:00 [facility] PPD (TB) 2014-07-13 Completed University of 00:00:00 [facility] PPD (TB) 2014-07-13 Completed University of 00:00:00 [facility] PPD (TB) 2014-07-13 Completed University of 00:00:00 [facility] PPD (TB) 2014-07-13 Completed University of 00:00:00 [facility] TDAP 2010-11-11 Completed University of 00:00:00 [facility] TDAP 2010-11-11 Completed University of 00:00:00 [facility] TDAP 2010-11-11 Completed University of 00:00:00 [facility] TDAP 2010-11-11 Completed University of 00:00:00 [facility] TDAP 2010-11-11 Completed University of 00:00:00 [facility] TDAP 2010-11-11 Completed University of 00:00:00 [facility] TDAP 2010-11-11 Completed University of 00:00:00 [place] [facility] TDAP 2010-11-11 Completed University of 00:00:00 [place] [facility] TDAP 2010-11-11 Completed University of 00:00:00 [place] [facility] TDAP 2010-11-11 Completed University of 00:00:00 [facility] Vital Signs Vital Name Observation Time Observation Value Comments Source Systolic blood 2022-09-04 23:00:00 135 mm[Hg] Univer sity of pressure [place] [facility] [place] Diastolic blood 2022-09-04 23:00:00 85 mm[Hg] Unive rsity of pressure [facility] Heart rate 2022-09-04 23:00:00 96 /min Universi ty of [facility] Body temperature 2022-09-04 23:00:00 36.78 Usha Univ ersity of [place] [facility] Respiratory rate 2022-09-04 23:00:00 18 /min Univ ersity of [place] [facility] [place] Body weight 2022-09-04 23:00:00 107.956 kg Universi ty of [place] [facility] BMI 2022-09-04 23:00:00 40.85 kg/m2 Universi ty of [place] [facility] Oxygen saturation in 2022-09-04 23:00:00 99 /min University of Arterial blood by [place] [employer] [facility] Pulse oximetry Branch Systolic blood 2022-01-30 20:00:00 123 mm[Hg] Univer sity of pressure [place] [facility] [place] Diastolic blood 2022-01-30 20:00:00 75 mm[Hg] Unive rsity of pressure [place] [facility] [place] Heart rate 2022-01-30 20:00:00 75 /min Universi ty of [place] [facility] Respiratory rate 2022-01-30 20:00:00 18 /min Univ ersity of [facility] Branch Oxygen saturation in 2022-01-30 20:00:00 100 /min University of Arterial blood by [place] [employer] [facility] Pulse oximetry Branch Body temperature 2022-01-30 16:58:00 36.94 Usha Univ ersity of [place] [facility] Body height 2022-01-30 16:58:00 162.6 cm Universi ty of [place] [facility] Body weight 2022-01-30 16:58:00 107.956 kg Universi ty of [place] [facility] BMI 2022-01-30 16:58:00 40.85 kg/m2 Universi ty of [place] [facility] Systolic blood 2020-05-19 16:15:00 114 mm[Hg] Univer sity of pressure [place] [facility] Diastolic blood 2020-05-19 16:15:00 74 mm[Hg] Unive rsity of pressure [place] [facility] Heart rate 2020-05-19 16:15:00 67 /min Universi ty of [place] [facility] Body temperature 2020-05-19 16:15:00 36.11 Usha Univ ersity of [place] [facility] Respiratory rate 2020-05-19 16:15:00 16 /min Univ ersity of [place] [facility] Oxygen saturation in 2020-05-19 16:15:00 98 /min University of Arterial blood by [place] [employer] Pulse oximetry Branch Body weight 2020-05-19 10:08:00 113.399 kg [facility] BMI 2020-05-19 10:08:00 42.91 kg/m2 [facility] Body height 2020-05-19 02:02:00 162.6 cm [facility] Systolic blood 2020-05-19 16:15:00 114 mm[Hg] [facility] Diastolic blood 2020-05-19 16:15:00 74 mm[Hg] [facility] Heart rate 2020-05-19 16:15:00 67 /min [facility] Body temperature 2020-05-19 16:15:00 36.11 Usha [facility] Respiratory rate 2020-05-19 16:15:00 16 /min [facility] Oxygen saturation in 2020-05-19 16:15:00 98 /min [facility] by [place] [facility] Pulse oximetry [facility] Body weight 2020-05-19 10:08:00 113.399 kg [facility] BMI 2020-05-19 10:08:00 42.91 kg/m2 [facility] Body height 2020-05-19 02:02:00 162.6 cm [facility] Systolic blood 2020-05-17 15:52:00 126 mm[Hg] [facility] Diastolic blood 2020-05-17 15:52:00 78 mm[Hg] [facility] Heart rate 2020-05-17 15:52:00 85 /min [facility] Body temperature 2020-05-17 15:52:00 36.94 Usha [facility] Respiratory rate 2020-05-17 15:52:00 16 /min [facility] height 2020-05-17 15:52:00 162.6 cm [facility] Body weight 2020-05-17 15:52:00 114.42 kg [facility] BMI 2020-05-17 15:52:00 43.30 kg/m2 [facility] Systolic blood 2020-05-17 15:52:00 126 mm[Hg] [facility] Diastolic blood 2020-05-17 15:52:00 78 mm[Hg] [facility] Heart rate 2020-05-17 15:52:00 85 /min [facility] Body temperature 2020-05-17 15:52:00 36.94 Usha [facility] Respiratory rate 2020-05-17 15:52:00 16 /min [facility] Body height 2020-05-17 15:52:00 162.6 cm [facility] Body weight 2020-05-17 15:52:00 114.42 kg [facility] BMI 2020-05-17 15:52:00 43.30 kg/m2 [facility] Procedures Procedure Date / Time Performing Clinician Source Performed XR KNEE 3 VW LEFT 2022-09-05 00:41:04 Ector Barkley [facility] ASSIGNMENT OF BENEFITS 2022-09-05 00:20:34 Doctor Unassigned, No [facility] NOTICE OF PRIVACY 2022-09-04 22:57:05 Doctor Unassigned, No [facility] PRACTICES [facility] CONSENT/REFUSAL FOR 2022-09-04 22:56:42 [facility] Un[facility], [facility] TREATMENT URINALYSIS 2022-01-30 17:29:00 Luis Mccabe [facility] LIPASE 2022-01-30 17:27:00 Luis Mccabe [facility] COMP. METABOLIC PANEL 2022-01-30 17:27:00 Luis Mccabe [facility] ([id number]) Medical Branch CBC WITH DIFF 2022-01-30 17:27:00 Luis Mccabe [facility] RAPID INFLUENZA A/B 2022-01-30 17:27:00 Luis Mccabe [facility] COVID-19 (ID NOW RAPID 2022-01-30 17:27:00 Luis Mccabe [facility] TESTING) Medical Branch CONSENT/REFUSAL FOR 2022-01-30 16:54:41 Doctor Unassigned, No Un [facility] DIAGNOSIS AND Name Medical Branch TREATMENT CAROTID DUPLEX 2020-05-19 16:57:08 Macie Gabe [facility] BILATERAL BY VASCULAR Medical Br anch LAB TROPONIN I 2020-05-19 04:13:00 [facility] COVID-19 (ID NOW RAPID 2020-05-18 22:35:00 [facility] Medical Branch XR CHEST 1 VW 2020-05-18 21:18:25 Gabe Noel [facility] LIPASE 2020-05-18 20:52:00 Bert [facility] FERRITIN SERUM 2020-05-18 20:52:00 Macie [facility] TROPONIN I 2020-05-18 20:52:00 Bert [facility] THYROID STIMULATING 2020-05-18 20:52:00 Gabe Quijano [facility] HORMONE [facility] Branch HEPATIC FUNCTION PANEL 2020-05-18 20:52:00 Gabe Noel [facility] ([id number]) Medical Branch (ALB,T.PRO,BILI T,BU/BC,ALT,AST,ALK PHOS) BASIC METABOLIC PANEL 2020-05-18 20:52:00 Gabe Noel [facility] (NA, K, CL, CO2, Medical Branch GLUCOSE, BUN, CREATININE, CA) CBC WITH DIFFERENTIAL 2020-05-18 20:52:00 Gabe Noel [facility] Medical [place] PROTHROMBIN TIME / INR 2020-05-18 20:52:00 [facility]abe [facility]el [facility] ACTIVATED PARTIAL 2020-05-18 20:52:00 Gabe Noel [facility] THRMPLAS TOO [facility] URINALYSIS 2020-05-18 20:52:00 Gabe Noel [facility] N-TERMINAL PRO-BNP 2020-05-18 20:52:[address] [facility] ADC / LCC - DRUG 2020-05-18 20:52:00 Gabe Noel [facility] SCREEN TRIAGE [facility] POCT TEST 2020-05-18 20:36:00 Gabe Noel [facility] EKG-12 LEAD 2020-05-18 20:35:39 Bert Gabe [facility] NOTICE OF PRIVACY 2020-05-18 20:09:59 Doctor Unassigned, No [facility] PRACTICES [facility] VITAMIN B12, LEVEL 2020-05-17 16:57:[address] [facility] FOLATE 2020-05-17 16:57:00 [facility] IRON PANEL 2020-05-17 16:57:00 [facility] ASSIGNMENT OF BENEFITS 2020-05-17 15:46:16 Doctor Unassigned, No [facility] Encounters Start End Encounter Admission Attending Care Care Encounter Source Date/Time Date/Time Type Type Clinicians Facility Department ID 2021-09-08 Emergency [facility] [id number] Univers [facility] 2022-09-04 2022-09-04 Emergency X Ector BARKLEY [facility] ERT [id number] Univers 18:02:00 20:50:00 ity [facility] 2022-09-04 2022-09-04 Emergency Ector Barkley [facility] 1.2.840.114 [id number] Univers 18:02:00 20:50:00 Malini SHAIKH 350.1.13.10 i ty [facility] 4.2.7.2.686 [facility] [id number] [facility] 084 Branch 2022-01-30 2022-01-30 Emergency X ESTELLE [facility] ERT [id number] Univers 12:02:00 15:35:00 LUIS ity of [facility] 2022-01-30 2022-01-30 Emergency Estelle [facility] 1.2.840.114 [id number] [facility] 12:02:00 15:35:00 Luiseliz SHAIKH 350.1.13.10 i ty [facility] 4.2.7.2.686 [place] [facility] [id number] [place] [address] [place] 2022-01-30 2022-01-30 Orders Doctor CLEOPATRA 1.2.840.114 [id number] Univers 00:00:00 00:00:00 Only Unassigned, АЛЕКСАНДР 350.1.13.10 ity of [place] 4.2.7.2.686 Ike as [id number] 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 019 [place] 2020-05-18 2020-05-19 Emergency Gabe Noel [facility] 1.2.840. 114 [id number] 15:15:10 14:00:00 Gabe Quijano 350.1.13.10 [place] 4.2.7.2.686 [place] [id number] [facility] 2020-05-18 2020-05-19 Emergency Gabe Noel [facility] 1.2.840. 114 [id number] [facility] 15:15:10 14:00:00 Gabe Quijano 350.1.13.10 ity of [place] 4.2.7.2.686 [facility] [id number] [address] 2020-05-19 2020-05-19 Telephone [facility] 1.2.840.114 [id number] [facility] 00:00:00 00:00:00 Simona N [employer]PECT[employer]YE[employer] 350.1.13.10 it y of [facility] 4.2.7.2.686 Ike as MATERNAL [phone] Med ical & CHILD [address] [place] [address] 2020-05-19 2020-05-19 [facility] 1.2.840.114 [id number] 00:00:00 00:00:00 Simona Trujillo INSPECTOR [employer]YE[employer]ASS 350.1.13.10 REGIONAL 4.2.7.2.686 MATERNAL [id number] & CHILD [address] [place] [address] 2020-05-17 2020-05-17 Office [facility] [id number] Univers 10:48:15 11:58:43 Visit Simona Trujillo [employer] 350.1.13.10 it y of [facility] 4.2.7.2.686 Ike as MATERNAL [id number] Med ical & CHILD [address] [place] [address] 2020-05-17 2020-05-17 Office [facility] [id number] 10:48:15 11:58:43 Visit Simona N [employer] 350.1.13.10 [facility] 4.2.7.2.686 MATERNAL [id number] & CHILD [address] [place] [address] 2020-05-17 2020-05-17 [facility] [id number] Univers 10:45:00 10:45:00 SIMONA [facility] 2020-05-17 2020-05-17 Orders Doctor WHELAN 1.2.840.114 [id number] 00:00:00 00:00:00 Only Unassigned, АЛЕКСАНДР 350.1.13.10 ity of [facility] 4.2.7.2.686 Ike as [id number] [place] [address] Branch 2020-02-09 2020-02-09 Emergency E LAKISHA, MHBL MHBL 7500 MHBL 04:30:00 05:49:00 TANG Results Test Description Test Time Test Comments Results Result Comments Source COMP. METABOLIC PANEL (33974) 2022-01-30 18:18:57 Test Item Value Reference Range Interpretation Comme nts NA (test code = 5093244742) 137 mmol/L 135-145 K (test code = 6714969754) 3.8 mmol/L 3.5-5.0 CL (test code = 9280734873) 97 mmol/L 98-108 L CO2 TOTAL (test code = 4189490636) 31 mmol/L 23-31 AGAP (test code = 9024156437) 2-16 BUN (test code = 1046783456) 17 mg/dL 7-23 GLUCOSE (test code = 1697911135) 102 mg/dL 70-110 CREATININE (test code = 0.80 mg/dL 0.50-1.04 2260749335) TOTAL BILI (test code = 0.6 mg/dL 0.1-1.3 0003232353) CALCIUM (test code = 1960592947) 9.1 mg/dL 8.6-10.6 T PROTEIN (test code = 0404974784) 8.6 g/dL 6.3-8.2 H ALBUMIN (test code = 9903435599) 4.7 g/dL 3.5-5.0 ALK PHOS (test code = 2671500261) 67 U/L 34-122 ALTv (test code = 1742-6) 24 U/L 5-35 AST(SGOT) (test code = 9454358075) 37 U/L 13-40 eGFR (test code = 8625905010) mL/min/1.73m2 ASA (test code = ASA) Association of Glomerular Filtration Rate (GFR) and Staging of Kidney Disease* + +-------- + ------+| GFR (mL/min/1.73 m2) ?| With Kidney Damage ?| ?Without Kidney Damage+ +-- + +| ?>90 ?| ?Stage one ?| ? Normal ?+ +------- + -------+| ?60-89 ?| ?Stage two ?| ? Decreased GFR ? + +-------- + ------+| ?30-59 ?| ?Stage three ?| ? Stage three ? + +-------- + ------+| ?15-29 ?| ?Stage four ? | ? Stage four ?+ +------- + -------+| ?<15 (or dialysis) ? ?| ?Stage five ? | ? Stage five ?+ +------- + -------+ *Each stage assumes the associated GFR level has been in effect for at least three months. ?Stages 1 to 5, with or without kidney disease, indicate chronic kidney disease. Notes: Determination of stages one and two (with eGFR >59mL/min/1.73 m2) requires estimation of kidney damage for at least three months as defined by structural or functional abnormalities of the kidney, manifested by either:Pathological abnormalities or Markers of kidney damage (including abnormalities in the composition of the blood or urine or abnormalities in imaging tests). Lab Interpretation (test code = Abnormal 72090-5) [facility]2022-[facility] 18:18:37 Test Item Value Reference Range Interpretation Comments LIPASE (test code = 3527368185) 102 U/L 0-220 Lab Interpretation (test code = Normal 30293-8) [facility] CenterCB WITH [id number] 18:06:32 Test Item Value Reference Range Interpretation Comments WBC (test code = See_Comment [Automated 6198-2) message] The sy stem which generated this result transmitted reference range : 4.30 - 11.10 10*3/?L. The reference range was not used to interpret this result as normal/abnormal . RBC (test code = See_Comment [Automated 316-8) message] The sy stem which generated this result transmitted reference range : 3.93 - 5.25 10*6/?L. The reference range was not used to interpret this result as normal/abnormal . HGB (test code = 12.4 g/dL 11.6-15.0 718-7) HCT (test code = 38.7 % 35.7-45.2 4544-3) MCV (test code = 81.3 fL 80.6-95.5 787-2) MCH (test code = 26.1 pg 25.9-32.8 785-6) MCHC (test code = 32.0 g/dL 31.6-35.1 786-4) RDW-SD (test code = 36.8 fL 39.0-49.9 L 56367-4) RDW-CV (test code = 12.4 % 12.0-15.5 788-0) PLT (test code = See_Comment [Automated 777-3) message] The sy stem which generated this result transmitted reference range : 166 - 358 10*3/ ?L. The reference r chris was not used to interpret this result as normal/abnormal . MPV (test code = 9.4 fL 9.5-12.9 L 01841-7) NRBC/100 WBC (test See_Comment [Automat ed code = 2300746471) message] The system which generated this result transmitted reference range : 0.0 - 10.0 /100 WBCs. The refer ence range was not u sed to interpret th is result as normal/abnormal . NRBC x10^3 (test code <0.01 See_Comment [Auto mated = 7051877886) message] The s ystem which generated this result transmitted reference range : 10*3/?L. The reference range was not used to interpret this result as normal/abnormal . GRAN MAT (NEUT) % 44.5 % (test code = 770-8) IMM GRAN % (test code 0.30 % = 7266459428) LYMPH % (test code = 45.9 % 736-9) MONO % (test code = 6.9 % 5905-5) EOS % (test code = 1.7 % 713-8) BASO % (test code = 0.7 % 706-2) GRAN MAT x10^3(ANC) 3.21 10*3/uL 1.88-7.09 (test code = 3197889766) IMM GRAN x10^3 (test <0.03 0.00-0.06 code = 7114472417) LYMPH x10^3 (test code 3.31 10*3/uL 1.32-3.29 H = 731-0) MONO x10^3 (test code 0.50 10*3/uL 0.33-0.92 = 742-7) EOS x10^3 (test code = 0.12 10*3/uL 0.03-0.39 711-2) BASO x10^3 (test code 0.05 10*3/uL 0.01-0.07 = 704-7) Lab Interpretation Abnormal (test code = 29145-1) [facility] CenterTROPONIN [id number] 05:27:00 Test Item Value Reference Range Interpretation Comments TROPONIN I (test <0.012 See_Comment [Automated code = 2209960251) message] The system which generated this result transmitted reference range : <=0.034 ng/mL. The reference range was not used to interpr et this result as normal/abnormal . ASA (test code = Equal or Less than ASA) 0.034 ng/ml---Normal ?Note: Cardiac troponin begins to rise 3-4 hours after the onset of ischemia. Repeat in 4-6 hours if the sample was drawn within 3-4 hours of the onset of the symptom and found normal. Between 0.035 and 0.120 ng/mL--- Borderline. Questionable myocardial injury or necrosis ? ?Note: Serial measurement may be necessary to confirm or exclude the diagnosis of myocardial injury or necrosis; Clinical correlation (symptoms, EKGs, imaging studies, and others) required; Repeat in 4-6 hours if clinically indicated. ? Equal or Higher than 0.121 ng/mL---Abnormal. Myocardial Injury or Necrosis Likely ? Biotin has been reported to cause a negative bias, interpret results relative to patient's use of biotin. ? Lab Interpretation Normal (test code = 09909-6) [facility] CenterFERRITIN [id number] 00:47:00 Test Item Value Reference Range Interpretation Comments FERRITIN (test code = 6.3 ng/mL 6-137 4480455545) ASA (test code = ASA) Biotin has been reported to cause a negative bias, interpret results relative to patient's use of biotin. Lab Interpretation (test Normal code = 84647-4) [facility] CenterTHYROID STIMULATING [id number] 00:43:00 Test Item Value Reference Range Interpretation Comments TSH (test code = See_Comment Biotin has been 3306456103) reported to cau se a negative bias, interpret resul ts relative to pat ient's use of biotin. [Automated mess age] The system [employer] generated this result transmitted ref erence range: 0.45 - 4 .70 mIU/L. The refe rence range was not u sed to interpret this result as normal/abnor mal. Lab Interpretation (test Normal code = 54885-8) [facility] CenterVITAMIN B12, [id number] 00:22:00 Test Item Value Reference Range Interpretation Comments VIT B12 (test code = 401 pg/mL 240-930 3046885668) ASA (test code = ASA) Biotin has been reported to cause a positive bias, interpret results relative to patient's use of biotin. Lab Interpretation (test Normal code = 12670-1) [facility] CenterFOLATE2020-07-09 00:22:00 Test Item Value Reference Range Interpretation Comments FOLATE SER (test code = 13.6 ng/mL 3-20 7454349294) Lab Interpretation (test code = Normal 69999-0) [facility] CenterCOVID-19 (ID NOW RAPID TESTING)2020-05-18 23:39:00 Test Item Value Reference Range Interpretation Comments SARS-CoV-2 Rapid ID NOW Not Detected Not Detected (test code = 68057-2) ASA (test code = ASA) ID NOW COVID-19 Assay is an isothermal nucleic acid amplification test intended for the qualitative detection of nucleic acid from SARS-CoV-2 viral RNA in nasopharyngeal (DATA ENTRY REPRESENTATIVE) specimens. It is used under Emergency Use Authorization (EUA) by FDA. The limit of detection (LOD) of the assay is 125 Genome Equivalents/mL. A positive result is indicative of the presence of SARS-CoV-2 RNA. ?Clinical correlation with patient history and other diagnostic information is necessary to determine patient infection status. A negative (Not Detected) result does not preclude SARS-CoV-2 infection. In patients with clinical symptoms and other tests that are consistent with SARS-CoV-2 infection, negative results should be treated as presumptive negative and a new specimen should be tested with alternative PCR molecular test. Invalid: Please collect a new specimen for repeat patient testing if clinically indicated. Lab Interpretation Normal (test code = 81090-7) [facility] CenterIRO [id number] 23:23:00 Test Item Value Reference Range Interpretation Comments IRON (test code = 9479376631) 38 ug/dL 50-160 L TIBC (test code = 0800963753) 456 ug/dL 250-410 H % FE SAT (test code = 0547717525) 8 % 20-50 L Lab Interpretation (test code = Abnormal 17283-5) [facility] Metabolic Panel (NA, K, CL, CO2, GLUCOSE, BUN, CREATININE, CA)2020-05-18 22:07:00 Test Item Value Reference Range Interpretation Comments NA (test code = 137 mmol/L 135-145 3151403696) K (test code = 3.8 mmol/L 3.5-5 2063006710) CL (test code = 100 mmol/L 98-108 9513853382) CO2 TOTAL (test code = 26 mmol/L 23-31 6100097574) AGAP (test code = 2-16 1538285751) BUN (test code = 13 mg/dL 7-23 2225197644) GLUCOSE (test code = 96 mg/dL 70-110 8455361130) CREATININE (test code 0.83 mg/dL 0.5-1.04 = 9125495727) CALCIUM (test code = 9.8 mg/dL 8.6-10.6 0192343336) eGFR Calculation mL/min/1.73m2 (Non-) (test code = 7136586363) eGFR Calculation mL/min/1.73m2 () (test code = 6374074616) ASA (test code = ASA) Association of Glomerular Filtration Rate (GFR) and Staging of Kidney Disease* + -+ + ---+| GFR (mL/min/1.73 m2) ?| With Kidney Damage ?| ?Without Kidney Damage+ -------+ ------+ ---------+| ?>90 ?| ?Stage one ?| ? Normal ?+ --+ -+ ----+| ?60-89 ?| ?Stage two ?| ? Decreased GFR ? + -+ + ---+| ?30-59 ?| ?Stage three ?| ? Stage three ? + -+ + ---+| ?15-29 ?| ?Stage four ? | ? Stage four ?+ --+ -+ ----+| ?<15 (or dialysis) ? ?| ?Stage five ? | ? Stage five ?+ --+ -+ ----+ *Each stage assumes the associated GFR level has been in effect for at least three months. ?Stages 1 to 5, with or without kidney disease, indicate chronic kidney disease. Notes: Determination of stages one and two (with eGFR >59mL/min/1.73 m2) requires estimation of kidney damage for at least three months as defined by structural or functional abnormalities of the kidney, manifested by either:Pathological abnormalities or Markers of kidney damage (including abnormalities in the composition of the blood or urine or abnormalities in imaging tests). [facility] CenteraPTT2020-07-08 21:59:00 Test Item Value Reference Range Interpretation Comments APTT Patient (test See_Comment [Automat ed code = 3173-2) message] The system which generated this result transmitted reference range : 23 - 38 Seconds . The reference range was not used to interpr et this result as normal/abnormal . ASA (test code = ASA) The [facility] patient population mean normal value for aPTT is 30 seconds. Lab Interpretation Normal (test code = 00528-1) [facility] CenterProthrombin Time (PT) / [id number] 21:56:00 Test Item Value Reference Range Interpretation Comments PROTIME PATIENT (test See_Comment [Auto mated message] code = 5964-2) The system wh ich generated this result transmitted ref erence range: 12.0 - 1 4.7 Seconds. The re ference range was not u sed to interpret this result as normal/abnor mal. INR (test code = 6301-6) Nor mal INR <1.1; Warfarin Therap eutic range 2.0 to 3. 0 or 2.5 to 3.5, dep ending upon the indica tions. Lab Interpretation (test Normal code = 72055-6) [facility] CenterTroponin [id number] 21:53:00 Test Item Value Reference Range Interpretation Comments TROPONIN I (test <0.012 See_Comment [Automated code = 0666025958) message] The system which generated this result transmitted reference range : <=0.034 ng/mL. The reference range was not used to interpr et this result as normal/abnormal . ASA (test code = Equal or Less than ASA) 0.034 ng/ml---Normal ?Note: Cardiac troponin begins to rise 3-4 hours after the onset of ischemia. Repeat in 4-6 hours if the sample was drawn within 3-4 hours of the onset of the symptom and found normal. Between 0.035 and 0.120 ng/mL--- Borderline. Questionable myocardial injury or necrosis ? ?Note: Serial measurement may be necessary to confirm or exclude the diagnosis of myocardial injury or necrosis; Clinical correlation (symptoms, EKGs, imaging studies, and others) required; Repeat in 4-6 hours if clinically indicated. ? Equal or Higher than 0.121 ng/mL---Abnormal. Myocardial Injury or Necrosis Likely ? Biotin has been reported to cause a negative bias, interpret results relative to patient's use of biotin. ? Lab Interpretation Normal (test code = 73715-5) [facility] CenterN-TERMINAL [id number] 21:49:00 Test Item Value Reference Range Interpretation Comments NT-proBNP (test code 26 pg/mL See_Comment [Autom ated = 1018395645) message] The system which generated this result transmitted reference range : <=125. The reference range was not used to interpret this result as normal/abnormal . ASA (test code = ASA) Biotin has been reported to cause a negative bias, interpret results relative to patient's use of biotin. Lab Interpretation Normal (test code = 13019-7) [facility] (ALB, T.PRO, BILI T, BU/BC, ALT, AST, ALK PHOS)2020-05-18 21:41:00 Test Item Value Reference Range Interpretation Comments TOTAL BILI (test code = 3622062933) 0.3 mg/dL 0.1-1.1 BILI UNCON (test code = 2624932605) 0.4 mg/dL 0.1-1.1 BILI CONJ (test code = 5904119761) 0.0 mg/dL 0-0.3 T PROTEIN (test code = 1894509554) 8.8 g/dL 6.3-8.2 H ALBUMIN (test code = 0395833871) 4.6 g/dL 3.5-5 ALK PHOS (test code = 8131595368) 71 U/L 34-122 ALTv (test code = 1742-6) 25 U/L 5-35 AST(SGOT) (test code = 8161841713) 43 U/L 13-40 H Lab Interpretation (test code = Abnormal 93879-9) [facility] CenterLIP[facility]2020-07-08 21:40:00 Test Item Value Reference Range Interpretation Comments LIPASE (test code = 3219254951) 113 U/L 0-220 Lab Interpretation (test code = Normal 37689-4) [facility] Center[facility]inalysis2020-07-08 21:31:00 Test Item Value Reference Range Interpretation Comments APPEARANCE (test code = Clear Clear 9929270998) COLOR (test code = Yellow Yellow 8123070526) PH (test code = 4.8-8.0 2244039675) SP GRAVITY (test code = 1.003-1.030 9143119236) GLU U QUAL (test code = Normal Normal 1000437408) BLOOD (test code = 1+ Negative A 0986880343) KETONES (test code = Negative Negative 2920352778) PROTEIN (test code = Negative Negative 2887-8) UROBILIN (test code = Normal Normal 6097936539) BILIRUBIN (test code = Negative Negative 4931181509) NITRITE (test code = Negative Negative 9103861055) LEUK LINWOOD (test code = Negative Negative 4825141595) RBC/HPF (test code = See_Comment [Autom ated message] 0321147233) The system [employer] generated this result transmitted ref erence range: 0 - 3 HP F. The reference range was not used to int erpret this result as normal/abnormal . WBC/HPF (test code = See_Comment [Autom ated message] 9361066544) The system [employer] generated this result transmitted ref erence range: 0 - 5 HP F. The reference range was not used to int erpret this result as normal/abnormal . BACTERIA (test code = Few Negative A 2490369140) MUCOUS (test code = Slight Negative LPF A 3370472303) SQ EPITH (test code = HPF 0448756341) Lab Interpretation (test Abnormal code = 13199-2) [facility] - DRUG SCREEN [id number] 21:28:00 Test Item Value Reference Range Interpretation Comments BENZO U (test code = Negative Negative 8695561809) LANE U (test code = Negative Negative 7424358828) AMPHET (test code = Negative Negative 6487196267) THC (test code = Negative Negative 1980438627) METHADONE (test code = Negative Negative 2930569051) Meth U (test code = Negative Negative 4779663788) OPIATES (test code = Negative Negative 3064031015) Cocaine Metabolite (test Negative Negative code = 7369041927) PROPOXY (test code = Negative Negative 7484358018) Tric U (test code = Negative Negative 9332446472) PCP (test code = Negative Negative 5122913506) OXYCOD (test code = Negative Negative 5227967390) ASA (test code = ASA) Urine Drug Cutoff Ranges Benzodiazepines: ? ? 150 ng/mLBarbiturates: ?200 ng/mLAmphetamine: ? 500 ng/mLCannabinoids: ?50 ?ng/mLMethadone: ? 200 ng/mLMethamphetamine: ? ? 500 ng/mL Opiates: ? 100 ng/mL or 2000 ng/mLCocaine: ? 150 ng/mLPropoxyphene: ?300 ng/mLTricyclics: ?300 ng/mLOxycodone: ? 100 ng/mLPCP: ? 25 ?ng/mL The results are to be used only for medical (i.e., treatment) purposes. Unconfirmed screening results must not be used for non-medical purposes (e.g., employment testing, legal testing). Lab Interpretation (test Normal code = 36217-2) [facility] CenterXR CHEST 1 [id number] 21:21:37HISTORY: Chest pain. TECHNIQUE: Portable AP view of the chest is obtained. Comparison is madewith 02/01/2019 study. FINDINGS: No acute pneumonia. No pneumothorax or pleural effusion orpulmonary congestion detected. Cardiac size is within normal limits.Cholecystectomy clips are seen in the right upper abdomen. CONCLUSIONS: No signs of acute cardiopulmonary disease.[facility], Radiant Results Inft User - 05/18/2020 4:22 PM CDTHISTORY: Chest pain.TECHNIQUE: Portable AP view of the chest is obtained. Comparison is madewith 02/01/2019 study.FINDINGS: No acute pneumonia. No pneumothorax or pleural effusion orpulmonary congestion detected. Cardiac size is within normal limits.Cholecystectomy clips are seen in the right upper abdomen.CONCLUSIONS: No signs of acute cardiopulmonary disease.[facility] WITH [id number] 21:07:00 Test Item Value Reference Range Interpretation Comments WBC (test code = See_Comment [Automated 6690-2) message] The sy stem which generated this result transmitted reference range : 4.30 - 11.10 10*3/?L. The reference range was not used to interpret this result as normal/abnormal . RBC (test code = See_Comment [Automated 789-8) message] The sy stem which generated this result transmitted reference range : 3.93 - 5.25 10*6/?L. The reference range was not used to interpret this result as normal/abnormal . HGB (test code = 9.8 g/dL 11.6-15 L 718-7) HCT (test code = 32.4 % 35.7-45.2 L 4544-3) MCV (test code = 73.8 fL 80.6-95.5 L 787-2) MCH (test code = 22.3 pg 25.9-32.8 L 785-6) MCHC (test code = 30.2 g/dL 31.6-35.1 L 786-4) RDW-SD (test code = 43.4 fL 39-49.9 80668-0) RDW-CV (test code = 16.4 % 12-15.5 H 788-0) PLT (test code = See_Comment H [Automated 777-3) message] The sy stem which generated this result transmitted reference range : 166 - 358 10*3/ ?L. The reference r chris was not used to interpret this result as normal/abnormal . MPV (test code = 10.1 fL 9.5-12.9 77011-5) NRBC/100 WBC (test See_Comment [Automat ed code = 7691310727) message] The system which generated this result transmitted reference range : 0.0 - 10.0 /100 WBCs. The refer ence range was not u sed to interpret th is result as normal/abnormal . NRBC x10^3 (test code <0.01 See_Comment [Auto mated = 4455172093) message] The s ystem which generated this result transmitted reference range : 10*3/?L. The reference range was not used to interpret this result as normal/abnormal . GRAN MAT (NEUT) % 42.2 % (test code = 770-8) IMM GRAN % (test code 0.30 % = 8837772282) LYMPH % (test code = 48.8 % 736-9) MONO % (test code = 6.2 % 5905-5) EOS % (test code = 2.0 % 713-8) BASO % (test code = 0.5 % 706-2) GRAN MAT x10^3(ANC) 3.22 10*3/uL 1.88-7.09 (test code = 4789005975) IMM GRAN x10^3 (test <0.03 0-0.06 code = 9101746078) LYMPH x10^3 (test code 3.72 10*3/uL 1.32-3.29 H = 731-0) MONO x10^3 (test code 0.47 10*3/uL 0.33-0.92 = 742-7) EOS x10^3 (test code = 0.15 10*3/uL 0.03-0.39 711-2) BASO x10^3 (test code 0.04 10*3/uL 0.01-0.07 = 704-7) Lab Interpretation Abnormal (test code = 85168-7) [facility] CenterPOMA [id number] 20:36:00 Test Item Value Reference Range Interpretation Comments POCT PREG (test code = 1605) negative POCT PREG LOT # (test code = 3575) [id number] POCT PREG TEST DATE (test 06/10/2021 code = 3576) Lab Interpretation (test code = Normal 10100-0) [facility]"
[2023-04-30] MEDS ORDERED: KETOROLAC 30 MG/ML INJ ONE (07:56)
[2023-04-30 08:06] LABS: Absolute Lymphocytes (CBC) 3.1 K/uL (0.7-4.9); Lymphocytes % 48.6 % (15.3-44.8); MCV 81.6 fL (80-100); MPV 7.2 fL (7.6-11.3); RBC Red Blood Cell Count 4.53 M/uL (3.86-4.86)
[2023-04-30 08:09] LABS: Specific Gravity 1.021 (1.005-1.030); Urine Bacteria None Seen /HPF (<20); Urine Bilirubin NEGATIVE (Negative); Urine Blood Negative (Negative); Urine Clarity Turbid (Clear); Urine Color Light-Yellow (Yellow); Urine Glucose NEGATIVE (Negative); Urine Mucus Slight /HPF (None Seen); Urine Protein NEGATIVE (Negative); Urine RBC <5 /HPF (None Seen); Urine Urobilinogen Normal (Normal)
--- NOTE | 2023-04-30 08:12 | RAD REPORT ---
EXAM DESCRIPTION: CT - Stone Protocol - 04/30/2023 8:00 am CLINICAL HISTORY: right flank pain COMPARISON: No comparisons TECHNIQUE: Thin cut axial CT imaging of the abdomen and pelvis was performed without IV contrast. Mu ltiplanar reformats were generated and reviewed. All CT scans are performed using dose optimization technique as appropriate and may include automated exposure control or mA/KV adjustment according to patient size. FINDINGS: Motion artifact, in part related to poor breathing control, limits evaluation. No suspicious findings in the lung bases. The liver, spleen, and pancreas show no suspicious findings. No evidence of intra or extrahepatic ander iary ductal dilation Symmetric renal contour, without suspicious parenchymal findings within limits of noncontrast techniq ue. No evidence of radiopaque calculi or hydroureteronephrosis. No dilated bowel loops or bowel wall thickening. No free air, free fluid or inflammatory stranding. N o hernia, mass or bulky lymphadenopathy. The urinary bladder is suboptimally distended limiting evalu ation. Status post hysterectomy and cholecystectomy. No suspicious bony findings. IMPRESSION: No acute intra-abdominal process.
[2023-04-30 08:23] LABS: Albumin 3.4 g/dL (3.4-5.0); Bilirubin Total 0.2 mg/dL (0.2-1.0); Potassium 3.7 mEq/L (3.5-5.1); Protein, Total 7.5 g/dL (6.4-8.2)
--- NOTE | 2023-04-30 08:42 | EDPHYS ---
Physician Documentation [facility] Name: Astrid Zamora Age: 42 yrs Sex: Female : 1980 Arrival Date: 04/30/2023 Time: 06:57 Bed 13 Private MD: ED Physician Ray Steele HPI: 04/30 08:11 This 42 yrs old Black Female presents to ER via Ambulatory with complaints of Back Pain.kdr 08:11 The patient presents with pain that is acute, with no known mechanism of injury. The kdr symptoms are located in the right flank. Onset: The symptoms/episode began/occurred gradually, 3 day(s) ago. The pain does not radiate. Associated signs and symptoms: The patient has no apparent associated signs or symptoms. The problem was sustained without known cause. Modifying factors: The patient symptoms are alleviated by nothing, the patient symptoms are aggravated by nothing. Severity of symptoms: At their worst the symptoms were mild, just prior to arrival, in the emergency department the symptoms are unchanged. The patient has not recently seen a physician. Historical: - Allergies: 07:09 No Known Allergies; kc6 - PMHx: 07:09 Hypertension; Diabetes mellitus; kc6 - PSHx: 07:09 Cholecystectomy; hysterectomy; tubal ligation; kc6 - Immunization history:: Client reports receiving the 2nd dose of the Covid vaccine, Flu vaccine is up to date. - Social history:: Smoking status: Patient denies any tobacco usage or history of. ROS: 08:11 Constitutional: Negative for fever, chills, and weight loss, Eyes: Negative for injury, kdr pain, redness, and discharge, ENT: Negative for injury, pain, and discharge, Neck: Negative for injury, pain, and swelling, Cardiovascular: Negative for chest pain, palpitations, and edema, Respiratory: Negative for shortness of breath, cough, wheezing, and pleuritic chest pain, Abdomen/GI: Negative for abdominal pain, nausea, vomiting, diarrhea, and constipation, : Negative for injury, bleeding, discharge, and swelling, MS/Extremity: Negative for injury and deformity, Skin: Negative for injury, rash, and discoloration, Neuro: Negative for headache, weakness, numbness, tingling, and seizure activity. Psych: Negative for depression, anxiety, suicide ideation, homicidal ideation, and hallucinations, Allergy/Immunology: Negative for hives, rash, and allergies, Endocrine: Negative for neck swelling, polydipsia, polyuria, polyphagia, and marked weight changes, Hematologic/Lymphatic: Negative for swollen nodes, abnormal bleeding, and unusual bruising. 08:11 Back: Positive for pain at rest, Negative for injury or acute deformity, radiated pain, acute changes. Exam: 08:11 Constitutional: This is a well developed, well nourished patient who is awake, alert, kdr and in no acute distress. Head/Face: Normocephalic, atraumatic. 08:11 Back: pain, that is mild, ROM is normal, CVA tenderness, that is mild, is noted on the right. Vital Signs: 07:07 BP 129 / 87; Pulse 69; Resp 18 S; Temp 97.7(O); Pulse Ox 99% on R/A; Weight 105.23 kg kc6 (R); Height 5 ft. 5 in. (R); Pain 8/10; 08:17 BP 120 / 72; Pulse 57; Resp 17 S; Pulse Ox 98% on R/A; kc6 07:07 Body Mass Index 38.61 (105.23 kg, 165.1 cm) kc6 07:07 Pain Scale: Adult kc6 MDM: 08:11 Data reviewed: vital signs, nurses notes, lab test result(s), radiologic studies. kdr 08:42 Patient medically screened. kdr 04/30 07:42 Order name: CBC with Diff; Complete Time: 08:38 kdr 04/30 07:42 Order name: CMP; Complete Time: 08:38 kdr 04/30 07:42 Order name: Urinalysis w/ reflexes; Complete Time: 08:38 kdr 04/30 07:42 Order name: CT Stone Protocol; Complete Time: 08:38 kdr 04/30 07:42 Order name: IV Saline Lock; Complete Time: 07:51 kdr 04/30 07:42 Order name: Labs collected and sent; Complete Time: 07:51 kdr Administered Medications: 07:51 Drug: Ketorolac IVP 15 mg Route: IVP; Site: right antecubital; kc6 08:43 Follow up: Response: No adverse reaction kc6 Disposition Summary: 04/30/23 08:42 Discharge Ordered Location: Home kdr Problem: new kdr Symptoms: have improved kdr Condition: Stable kdr Diagnosis - Flank pain -right kdr - Unspecified symptoms and signs involving the musculoskeletal system kdr Followup: kdr - With: Vaibhav Maria MD - When: 2 - 3 days - Reason: If symptoms return, Further diagnostic work-up, Recheck today's complaints, Continuance of care, Re-evaluation by your physician Discharge Instructions: - Discharge Summary Sheet kdr - Musculoskeletal Pain kdr - Flank Pain, Adult, [place] kdr Forms: - Medication Reconciliation Form kdr - Thank You Letter kdr Prescriptions: - Ibuprofen 800 mg Oral Tablet - take 1 tablet by ORAL route every 8 hours As needed take with food; 15 tablet; kdr Refills: 0, Product Selection Permitted - Cyclobenzaprine 10 mg Oral Tablet - take 1 tablet by ORAL route every 8 hours As needed; 15 tablet; Refills: 0, kdr Product Selection Permitted Signatures: Dispatcher [employer] Ray Olmstead MD MD kdr Ros Reeves RN RN kc6
--- NOTE | 2023-04-30 08:42 | ER ---
Nurse's Notes [facility] Name: Astrid Zamora Age: 42 yrs Sex: Female : 1980 Arrival Date: 04/30/2023 Time: 06:57 Bed 13 Private MD: Diagnosis: Flank pain -right;Unspecified symptoms and signs involving the musculoskeletal system Presentation: 04/30 07:07 Chief complaint: Patient states: lower back pain x1 day. stated this has happened in kc6 the past and doesn't know what causes it. denies urinary symptoms or heavy lifting. Coronavirus screen: At this time, the client does not indicate any symptoms associated with coronavirus-19. Ebola Screen: No symptoms or risks identified at this time. Initial Sepsis Screen: Does the patient meet any 2 criteria? No. Patient's initial sepsis screen is negative. Does the patient have a suspected source of infection? No. Patient's initial sepsis screen is negative. Risk Assessment: Do you want to hurt yourself or someone else? Patient reports no desire to harm self or others. Onset of symptoms was April 30, 2023. 07:07 Method Of Arrival: Ambulatory [facility] 07:07 Acuity: CR 4 kc6 Triage Assessment: 07:09 General: Appears in no apparent distress. uncomfortable, Behavior is calm, cooperative, kc6 appropriate for age. Pain: Complains of pain in back Pain does not radiate. Pain currently is 8 out of 10 on a pain scale. at worst was 10 out of 10 on a pain scale. Quality of pain is described as burning, Pain began 1 day ago. Is continuous, Alleviated by rest, Aggravated by increased activity, Noted to be resistant to movement. EENT: No signs and/or symptoms were reported regarding the EENT system. Neuro: Guerrier Agitation-Sedation Scale (RASS): 0 - Alert and Calm Level of Consciousness is awake, alert, obeys commands, Oriented to person, place, time, situation, Appropriate for age. Cardiovascular: Capillary refill < 3 seconds. Respiratory: Airway is patent Trachea midline Respiratory effort is even, unlabored, Respiratory pattern is regular, symmetrical. GI: No signs and/or symptoms were reported involving the gastrointestinal system. : No signs and/or symptoms were reported regarding the genitourinary system. Derm: No signs and/or symptoms reported regarding the dermatologic system. Skin is intact, Skin is pink, warm \T\ dry. Musculoskeletal: Circulation, motion, and sensation intact. Capillary refill < 3 seconds, Range of motion: intact in all extremities. Historical: - Allergies: 07:09 No Known Allergies; kc6 - PMHx: 07:09 Hypertension; Diabetes mellitus; kc6 - PSHx: 07:09 Cholecystectomy; hysterectomy; tubal ligation; kc6 - Immunization history:: Client reports receiving the 2nd dose of the Covid vaccine, Flu vaccine is up to date. - Social history:: Smoking status: Patient denies any tobacco usage or history of. Screenin:10 [facility] ED Fall Risk Assessment (Adult) History of falling in the last 3 months, kc6 including since admission No falls in past 3 months (0 pts) Confusion or Disorientation No (0 pts) Intoxicated or Sedated No (0 pts) Impaired Gait No (0 pts) Mobility Assist Device Used No (0 pt) Altered Elimination No (0 pt) Score/Fall Risk Level 0 - 2 = Low Risk Oriented to surroundings, Maintained a safe environment, Educated pt \T\ family on fall prevention, incl call for assistance when getting out of bed, Assessed \T\ reinforced patient's understanding of fall precautions, Hourly rounding (assess needs \T\ fall precautionary measures) done. Abuse screen: Denies threats or abuse. Denies injuries from another. Nutritional screening: No deficits noted. Tuberculosis screening: No symptoms or risk factors identified. Assessment: 07:11 Reassessment: please see triage assessment. [facility] 08:11 Reassessment: Patient appears in no apparent distress at this time. No changes from 6 previously documented assessment. Patient and/or family updated on plan of care and expected duration. Pain level reassessed. Patient is alert, oriented x 3, equal unlabored respirations, skin warm/dry/pink. Vital Signs: 07:07 BP 129 / 87; Pulse 69; Resp 18 S; Temp 97.7(O); Pulse Ox 99% on R/A; Weight 105.23 kg kc6 (R); Height 5 ft. 5 in. (R); Pain 8/10; 08:17 BP 120 / 72; Pulse 57; Resp 17 S; Pulse Ox 98% on R/A; kc6 07:07 Body Mass Index 38.61 (105.23 kg, 165.1 cm) kc6 07:07 Pain Scale: Adult kc6 ED Course: 06:59 Patient arrived in ED. am2 07:07 Ros Reeves, RN is Primary Nurse. kc6 07:09 Triage completed. kc6 07:09 Arm band placed on. kc6 07:11 Patient has correct armband on for positive identification. Bed in low position. Call kc6 light in reach. Side rails up X 1. 07:21 Ray Steele MD is Attending Physician. kdr 07:51 Inserted saline lock: 20 gauge in right antecubital area, using aseptic technique. kc6 Blood collected. 08:02 CT Stone Protocol In Process Unspecified. EDMS 08:41 Vaibhav Maria MD is Referral Physician. kdr 08:49 No provider procedures requiring assistance completed. IV discontinued, intact, kc6 bleeding controlled, No redness/swelling at site. Pressure dressing applied. Administered Medications: 07:51 Drug: Ketorolac IVP 15 mg Route: IVP; Site: right antecubital; kc6 08:43 Follow up: Response: No adverse reaction kc6 Medication: 08:49 VIS not applicable for this client. kc6 Outcome: 08:42 Discharge ordered by . kdr 08:49 Discharged to home ambulatory. kc6 08:49 Condition: stable 08:49 Discharge instructions given to patient, Instructed on discharge instructions, follow up and referral plans. medication usage, Demonstrated understanding of instructions, follow-up care, medications, Prescriptions given X 2. 08:50 Patient left the ED. kc6 Signatures: Dispatcher [employer] EDNJ Ray Steele MD MD [facility] Rocío Romero am2 Ros Reeves, RN RN kc6
[2023-04-30 08:59] VITALS: TEMP 97.7
[2023-04-30 09:05] VITALS: BP 120/72; O2SAT 98
== END 2023-04-30 08:50 | disposition home or self-care (01) ==
LOC: ER 06:57
DX: R29.91 Unspecified symptoms and signs involving the musculoskeletal system (principal); I10 Essential (primary) hypertension
CPT/HCPCS: 36415; 74176; 76377; 80053; 81001; 85025